=== PATIENT | male | born 1940 | race Caucasian/White ===

== ENCOUNTER 2016-10-21 19:45 | Emergency (ER) | payer MEDICARE, BC ==
[2016-10-21] MEDS ORDERED: OXYMETAZOLINE HCL 0.05% NASAL SPRAY 15 ML BOTTLE NASL ONE (20:12)
--- NOTE | 2016-10-21 20:16 | ER Document Report ---
ED ENT - General Chief Complaint: Nose Bleed Stated Complaint: NOSE BLEED Time seen by provider: 20:15 Mode of Arrival: Stretcher Information source: Patient TRAVEL OUTSIDE OF THE [place] IN LAST 30 DAYS: No - HPI Patient complains to provider of: Nose problem Onset: This evening Onset/Duration: Sudden Location of pain: Nose Associated symptoms: Nose bleed Similar symptoms previously: Yes - 4 days ago, resolved at home Recently seen / treated by doctor: Yes - seen by primary care provider today Notes: Patient is a 76-year-old male presents to the emergency room complaining of nosebleed that's been occurring for the past 4 hours, patient denies any injury or trauma, no chest pain or shortness of breath, states he was at the pharmacy picking up a prescription for blood pressure medication when the nosebleed started, he thought he could take care of her at home so he waited 4 hours to come into the emergency room to seek treatments, states he had a similar nosebleed just a few days ago which resolved at home, patient is on Aggrenox and aspirin daily - Related Data Allergies/Adverse Reactions: No Known Drug Allergies Allergy (Verified 05/29/11 12:43) Past Medical History - General Information source: Patient - Social History Smoking Status: Unknown if Ever Smoked Family History: Reviewed & Not Pertinent - Past Medical History Cardiac Medical History: Reports: Hx Hypertension Pulmonary Medical History: Denies: Hx Tuberculosis Renal/ Medical History: Denies: Hx Peritoneal Dialysis Past Surgical History: Denies: Hx Appendectomy, Hx Bowel Surgery, Hx Cholecystectomy, Hx Coronary Artery Bypass Graft, Hx Gastric Bypass Surgery, Hx Herniorrhaphy, Hx Pacemaker, Hx Tonsillectomy - Immunizations Hx Diphtheria, Pertussis, Tetanus Vaccination: Yes Review of Systems - Review of Systems Constitutional: No symptoms reported EENT: See HPI Cardiovascular: No symptoms reported Respiratory: No symptoms reported Gastrointestinal: No symptoms reported Genitourinary: No symptoms reported Male Genitourinary: No symptoms reported Musculoskeletal: No symptoms reported Skin: No symptoms reported Hematologic/Lymphatic: No symptoms reported Neurological/Psychological: No symptoms reported -: Yes All other systems reviewed and negative Physical Exam - Vital signs Vitals: Resp 21 H 10/21/16 19:59 - General General appearance: Alert In distress: Mild - HEENT Head: Normocephalic, Atraumatic Eyes: Normal Conjunctiva: Normal Extraocular movements intact: Yes Eyelashes: Normal Pupils: PERRL Nasal: Epistaxis - Respiratory Respiratory status: No respiratory distress Chest status: Nontender Breath sounds: Normal Chest palpation: Normal - Cardiovascular Rhythm: Regular Heart sounds: Normal auscultation Murmur: No - Abdominal Inspection: Normal Distension: Distended Bowel sounds: Normal Tenderness: Nontender Organomegaly: No organomegaly - Back Back: Normal - Extremities General upper extremity: Normal inspection General lower extremity: Normal inspection - Neurological Cognition: Normal Orientation: AAOx4 [place] Coma Scale Eye Opening: Spontaneous Baljinder Coma Scale Verbal: Oriented [place] Coma Scale Motor: Obeys Commands [place] Coma Scale Total: 15 - Psychological Associated symptoms: Normal affect, Normal mood - Skin Skin Temperature: Warm Skin Moisture: Dry Skin Color: Normal Course - Re-evaluation Re-evalutation: 10/22/16 04:16 Rhino Rocket was placed in the right naris, bleeding subsided, he did have mild bleeding from the left nare which was resolved after using Afrin, patient was given instructions for follow-up and advised to return if symptoms worsen, patient acknowledges understanding and agreement with this plan - Vital Signs Vital signs: Temp Pulse Resp BP Pulse Ox 26 H 168/99 H 95 10/21/16 22:01 10/21/16 22:01 10/21/16 22:01 - Laboratory Result Diagrams: 10/21/16 20:44 10/21/16 20:44 Laboratory results interpreted by me: 10/21/16 10/21/16 10/21/16 20:44 20:44 20:44 WBC 10.9 H RDW 14.4 H APTT 23.0 L Glucose 111 H Procedures - Nosebleed Procedure Right Time completed: 04:16 Location: Posterior Supplies used: Rhinorocket Discharge - Discharge Clinical Impression: Nosebleed Condition: Stable Disposition: HOME, SELF-CARE Instructions: Nosebleed Instructions ([facility]), Nasal Sprays and Drops ([facility]) Additional Instructions: Nasal balloon needs to stay in place for the next 2-3 days. Then you should follow-up with an research hydraulic engineer or return to the emergency room for removal. Follow up with your primary care provider in the next 1-2 days as well. Return to the emergency room immediately if symptoms worsen or any additional Referrals: JACQUELYN LOO MD [Primary Care Provider] - Follow up as needed JESICA JAVIER MD [[facility]] - Follow up as needed
[2016-10-21 21:01] LABS: ABSOLUTE BASOPHILS # (AUTO) 0.1 10^3/uL (0.0-0.2); ABSOLUTE EOSINOPHILS # (AUTO) 0.2 10^3/uL (0.0-0.6); ABSOLUTE LYMPHOCYTES (AUTO) 3.9 10^3/uL (0.5-4.7); ABSOLUTE MONOCYTES (AUTO) 0.7 10^3/uL (0.1-1.4); ABSOLUTE NEUT (AUTO) 6.1 10^3/uL (1.7-8.2); BASOPHILS % (AUTO) 0.5 % (0-2); EOSINOPHILS % (AUTO) 1.5 % (0-6); HEMATOCRIT 41.9 % (37.9-51.0); HEMOGLOBIN 14.5 g/dL (13.5-17.0); HGB HCT DIFFERENCE 1.6; LYMPHOCYTES % (AUTO) 35.6 % (13-45); MEAN CORPUSCULAR HEMOGLOBIN 31.7 pg (27.0-33.4); MEAN CORPUSCULAR HGB CONC 34.7 g/dL (32.0-36.0); MEAN CORPUSCULAR VOLUME 91 fl (80-97); MONOCYTES % (AUTO) 6.6 % (3-13); RED BLOOD COUNT 4.58 10^6/uL (4.35-5.55); RED CELL DISTRIBUTION WIDTH 14.4 % (11.5-14.0); SEGMENTED NEUTROPHILS % (AUTO) 55.8 % (42-78); WHITE BLOOD COUNT 10.9 10^3/uL (4.0-10.5)
[2016-10-21 21:02] LABS: PROTHROMBIN TIME 12.3 SEC (11.4-15.4)
[2016-10-21] MEDS ORDERED: CLONIDINE HCL 0.2 MG TABLET PO ONE (21:17)
[2016-10-21 21:21] LABS: ALANINE AMINOTRANSFERASE 22 U/L (21-72); ALBUMIN 4.3 g/dL (3.5-5.0); ALKALINE PHOSPHATASE 54 U/L (38-126); ANION GAP 10 (5-19); ASPARTATE AMINO TRANSFERASE 24 U/L (17-59); BILIRUBIN,DIRECT 0.2 mg/dL (0.0-0.4); BILIRUBIN,TOTAL 0.5 mg/dL (0.2-1.3); BLOOD UREA NITROGEN 13 mg/dL (7-20); CALCIUM 9.5 mg/dL (8.4-10.2); CARBON DIOXIDE 30 mmol/L (22-30); CHLORIDE 99 mmol/L (98-107); CREATININE RESULT 0.98 mg/dL (0.52-1.25); GLUCOSE 111 mg/dL (75-110); POTASSIUM 4.4 mmol/L (3.6-5.0); SODIUM 138.8 mmol/L (137-145); TOTAL PROTEIN 8.1 g/dL (6.3-8.2)
[2016-10-21 22:22] VITALS: BP 168/99
== END 2016-10-21 22:30 | disposition home or self-care (01) ==
LOC: ER 19:45
PROC: 2Y41X5Z Packing of Nasal Region using Packing Material (ICD-10-PCS; principal; 2016-10-21)
DX: R04.0 Epistaxis (principal); Z79.899 Other long term (current) drug therapy
CPT/HCPCS: 99283; 36415; 85025; 85610; 85730; 80053; 30905; A9270; J3490

== ENCOUNTER 2017-08-27 15:18 | Emergency (ER) | payer MEDICARE, BC ==
--- NOTE | 2017-08-27 15:46 | RADIOLOGY REPORT (SQ) ---
EXAM DESCRIPTION: CT HEAD WITHOUT COMPLETED DATE/TIME: 08/27/2017 3:27 pm REASON FOR STUDY: Weakness to right arm COMPARISON: CT brain 05/29/2011 TECHNIQUE: Axial images acquired through the brain without intravenous contrast. Images reviewed wi th bone, brain and subdural windows. Images stored on PACS. All CT scanners at this facility use dose modulation, iterative reconstruction, and/or weight based d osing when appropriate to reduce radiation dose to as low as reasonably achievable (ALARA). [facility]: Dose Right [facility]: CareDose [facility]: Dose Right [facility]: Teradose 4D [facility]: [employer] RADIATION DOSE: CT Rad equipment meets quality standard of care and radiation dose reduction techniq ues were employed. CTDIvol: 64.6 mGy. DLP: 1163 mGy-cm. mGy. LIMITATIONS: Motion artifact FINDINGS: Motion artifact throughout the study. On images without motion artifact, no acute large t erritory ischemic change, acute intracranial hemorrhage, mass effect, or midline shift. There is moderate to marked bifrontal and biparietal small vessel chronic white matter disease, moder ate pontine white matter disease. Opacified bilateral ethmoid air cells. Mucus or serous retention cyst floor left maxillary sinus. No CT evidence of skull fracture. IMPRESSION: Limited study due to motion artifact. Chronic small vessel disease in the hemispheric w thuy matter and mid sandra. No gross acute changes. EVIDENCE OF ACUTE STROKE: NO. COMMENT: Pertinent findings on the imaging study reported as a CRITICAL RESULT to DR Gutierrez at15:3 0 on 08/27/2017. Category of Critical Result: CT stroke alert Quality ID # [id number]: Final reports with documentation of one or more dose reduction techniques (e.g., Au tomated exposure control, adjustment of the mA and/or kV according to patient size, use of iterative reconstruction technique) TECHNICAL DOCUMENTATION: JOB ID: [id number] [employer]- All Rights Reserved
--- NOTE | 2017-08-27 15:47 | RADIOLOGY REPORT (SQ) ---
EXAM DESCRIPTION: CHEST SINGLE VIEW COMPLETED DATE/TIME: 08/27/2017 3:32 pm REASON FOR STUDY: Weakness to right arm COMPARISON: None. EXAM PARAMETERS: NUMBER OF VIEWS: One view. TECHNIQUE: Single frontal radiographic view of the chest acquired. RADIATION DOSE: NA LIMITATIONS: Large patient, AP portable technique FINDINGS: LUNGS AND PLEURA: No opacities, masses or pneumothorax. No pleural effusion. MEDIASTINUM AND HILAR STRUCTURES: No masses. Contour normal. HEART AND VASCULAR STRUCTURES: Mild cardiomegaly BONES: Old healed left posterior and right anterior rib fractures HARDWARE: None in the chest. OTHER: No other significant finding. IMPRESSION: No acute findings TECHNICAL DOCUMENTATION: JOB ID: [id number] [employer]- All Rights Reserved
[2017-08-27 15:56] LABS: ABSOLUTE EOSINOPHILS # (AUTO) 0.2 10^3/uL (0.0-0.6); ABSOLUTE LYMPHOCYTES (AUTO) 3.2 10^3/uL (0.5-4.7); ABSOLUTE MONOCYTES (AUTO) 0.9 10^3/uL (0.1-1.4); ABSOLUTE NEUT (AUTO) 5.8 10^3/uL (1.7-8.2); BASOPHILS % (AUTO) 0.4 % (0-2); EOSINOPHILS % (AUTO) 1.6 % (0-6); HEMATOCRIT 45.2 % (37.9-51.0); HEMOGLOBIN 15.8 g/dL (13.5-17.0); INTERNATIONAL RATION (INR) 0.91; LYMPHOCYTES % (AUTO) 31.8 % (13-45); MEAN CORPUSCULAR HEMOGLOBIN 31.1 pg (27.0-33.4); MEAN CORPUSCULAR HGB CONC 35.1 g/dL (32.0-36.0); MEAN CORPUSCULAR VOLUME 89 fl (80-97); MONOCYTES % (AUTO) 9.1 % (3-13); PLATELET COUNT 187 10^3/uL (150-450); PROTHROMBIN TIME 12.9 SEC (11.4-15.4); RED BLOOD COUNT 5.09 10^6/uL (4.35-5.55); RED CELL DISTRIBUTION WIDTH 14.9 % (11.5-14.0); SEGMENTED NEUTROPHILS % (AUTO) 57.1 % (42-78); TOTAL CELLS COUNTED % (AUTO) 100 %; WHITE BLOOD COUNT 10.1 10^3/uL (4.0-10.5)
[2017-08-27 15:57] LABS: PARTIAL THROMBOPLASTIN TIME 32.5 SEC (23.5-35.8)
[2017-08-27 16:10] LABS: ALANINE AMINOTRANSFERASE 27 U/L (21-72); ALBUMIN 4.1 g/dL (3.5-5.0); ALKALINE PHOSPHATASE 56 U/L (38-126); ANION GAP 12 (5-19); ASPARTATE AMINO TRANSFERASE 17 U/L (17-59); BILIRUBIN,DIRECT 0.2 mg/dL (0.0-0.4); BILIRUBIN,TOTAL 0.3 mg/dL (0.2-1.3); BLOOD UREA NITROGEN 17 mg/dL (7-20); CALCIUM 9.3 mg/dL (8.4-10.2); CARBON DIOXIDE 24 mmol/L (22-30); CHLORIDE 101 mmol/L (98-107); CREATINE KINASE 47 U/L (55-170); GLUCOSE 83 mg/dL (75-110); POTASSIUM 4.5 mmol/L (3.6-5.0); SODIUM 136.8 mmol/L (137-145); TOTAL PROTEIN 7.4 g/dL (6.3-8.2)
[2017-08-27 16:28] LABS: CREATINE KINASE MB 0.56 ng/mL (<4.55)
[2017-08-27 16:29] LABS: TROPONIN I < 0.012 ng/mL
--- NOTE | 2017-08-27 16:58 | ER Document Report ---
ED General - General Chief Complaint: S/S of Possible Stroke Stated Complaint: POSSIBLE STROKE Time Seen by Provider: 08/27/17 16:04 TRAVEL OUTSIDE OF THE [place] IN LAST 30 DAYS: No - HPI Patient complains to provider of: Right-sided arm weakness Notes: Patient coming in after eating lunch today states that he had. Approximate 1 hour we could not move his right arm. Patient now presents to the ER states that his arm is back to normal however came to the ER at the urging of apparently some family members. States that try to call his PCP and also on the local surgeons who urged the patient to come to the ER for further evaluation. Patient does have a history of stroke in the past. Patient was last evaluated for stroke in 2010 with carotid Dopplers and echo. Patient states has history of hyperlipidemia hypertension and does smoke 2 packs a day. Patient resting comfortably upon my evaluation - Related Data Allergies/Adverse Reactions: No Known Drug Allergies Allergy (Verified 05/29/11 12:43) Past Medical History - Social History Smoking Status: Unknown if Ever Smoked Family History: Reviewed & Not Pertinent - Past Medical History Cardiac Medical History: Reports: Hx Hypertension Pulmonary Medical History: Denies: Hx Tuberculosis Renal/ Medical History: Denies: Hx Peritoneal Dialysis Past Surgical History: Denies: Hx Appendectomy, Hx Bowel Surgery, Hx Cholecystectomy, Hx Coronary Artery Bypass Graft, Hx Gastric Bypass Surgery, Hx Herniorrhaphy, Hx Pacemaker, Hx Tonsillectomy - Immunizations Hx Diphtheria, Pertussis, Tetanus Vaccination: Yes Review of Systems - Review of Systems Constitutional: No symptoms reported EENT: No symptoms reported Cardiovascular: No symptoms reported Respiratory: No symptoms reported Gastrointestinal: No symptoms reported Genitourinary: No symptoms reported Male Genitourinary: No symptoms reported Musculoskeletal: Other - Transient right arm weakness Skin: No symptoms reported Hematologic/Lymphatic: No symptoms reported Neurological/Psychological: No symptoms reported Physical Exam - Vital signs Vitals: Pulse Resp BP Pulse Ox 84 23 H 134/86 H 94 08/27/17 15:30 08/27/17 15:30 08/27/17 15:30 08/27/17 15:30 Interpretation: Normal - General General appearance: Appears well, Alert - HEENT Head: Normocephalic, Atraumatic Eyes: Normal Pupils: PERRL - Respiratory Respiratory status: No respiratory distress Chest status: Nontender Breath sounds: Normal Chest palpation: Normal - Cardiovascular Rhythm: Regular Heart sounds: Normal auscultation Murmur: No - Abdominal Inspection: Normal Distension: No distension Bowel sounds: Normal Tenderness: Nontender Organomegaly: No organomegaly - Back Back: Normal, Nontender - Extremities General upper extremity: Normal inspection, Nontender, Normal color, Normal ROM , Normal temperature General lower extremity: Normal inspection, Nontender, Normal color, Normal ROM , Normal temperature, Normal weight bearing. No: Michael's sign - Neurological Neuro grossly intact: Yes Cognition: Normal Orientation: AAOx4 [place] Coma Scale Eye Opening: Spontaneous [place] Coma Scale Verbal: Oriented Baljinder Coma Scale Motor: Obeys Commands [place] Coma Scale Total: 15 Speech: Normal Cranial nerves: Normal Cerebellar coordination: Other - [place] on finger to nose on the right hand Motor strength normal: LUE, RUE, LLE, RLE Additional motor exam normals: Equal core man Sensory: Normal - Psychological Associated symptoms: Normal affect, Normal mood - Skin Skin Temperature: Warm Skin Moisture: Dry Skin Color: Normal Course - Re-evaluation Re-evalutation: 08/27/17 17:32 Discussed with the patient concerning for possible TIA that the patient had flaccid paralysis of his right arm for approximately 1 hour. Patient not a candidate for TPA Discussed with PCP agrees with admission at this time. Informed patient that discussed with PCP that we are going to admit the patient for further evaluation patient states that he does not want to stay here in the hospital. Patient states he would rather go home. I explained to the patient with family member at bedside multiple times that the reason for admission was for evaluation to hopefully prevent further strokes. I explain to patient that he stroke to lead to the patient's or disability requiring him to receive 24-hour care causing inability to walk talk Causing inability for the patient to feed himself take care of himself. Patient states understanding of these risks. Patient states that he would still like to leave the hospital I spent the patient that he will sign out AGAINST MEDICAL ADVICE. Family is at bedside family is obviously upset however this is the patient's decision is that he does have medical decision-making capability. ANO 3 with no signs of any altered mental status. 08/27/17 23:29 - Vital Signs Vital signs: Temp Pulse Resp BP Pulse Ox 84 19 138/80 H 93 08/27/17 15:30 08/27/17 17:00 08/27/17 16:03 08/27/17 17:00 - Laboratory Result Diagrams: 08/27/17 15:43 08/27/17 15:43 Laboratory results interpreted by me: 08/27/17 08/27/17 15:43 15:43 RDW 14.9 H Sodium 136.8 L Creatine Kinase 47 L Discharge - Discharge Clinical Impression: right upper extrimity weakness HTN (hypertension) Qualifiers: Hypertension type: unspecified Qualified Code(s): I10 - Essential (primary) hypertension TIA (transient ischemic attack) Qualifiers: Transient cerebral ischemia type: unspecified Qualified Code(s): G45.9 - Transient cerebral ischemic attack, unspecified Condition: Good Disposition: AGAINST MEDICAL ADVICE Admitting Provider: Abel Unit Admitted: [facility] Instructions: Stop Smoking ([facility]), Stroke ([facility]) Additional Instructions: Your symptoms are concerning for a TIA or transient ischemia attack. This is when a part of your brain loses blood flow causing signs and symptoms of a stroke however this causes transient reverses itself. TIAs are the precursor to having strokes. I have discussed with your family physician recommending admission to the hospital for further evaluation however at this time you have decided to leave AGAINST MEDICAL ADVICE. You stated a understanding that you have the risk of possibly having a stroke later on you understand that is may lead to if not disabled with inability to walk talk care for yourself feed yourself and/or function. I highly recommend calling Florentino Loo MD office tomorrow for further evaluation. Please take your medications as prescribed. It is in your best interest to stop smoking. You may return to the er at anytime Referrals: FLORENTINO LOO MD [Primary Care Provider] - Follow up as needed
[2017-08-27] MEDS ORDERED: NORMAL SALINE 1000 ML 1,000 ML IV PRN (17:02)
--- NOTE | 2017-08-27 17:13 | PDOC H&P ---
History of Present Illness Admission Date/PCP: JACQUELYN LOO, Patient complains of: Arm weakness History of Present Illness: MARLENE BONE SR is a 77 year old male Past Medical History Cardiac Medical History: Reports: Hyperlipidema, Hypertension Pulmonary Medical History: Reports: Chronic Obstructive Pulmonary Disease (COPD) Denies: Tuberculosis Neurological Medical History: Reports: Ischemic CVA Musculoskeltal Medical History: Reports: Arthritis Past Surgical History Past Surgical History: Reports: None Denies: Appendectomy, Cholecystectomy, Coronary Artery Bypass Graft, Gastric Bypass Surgery, Herniorrhaphy, Pacemaker, Tonsillectomy Social History Information Source: Patient Lives with: Family Smoking Status: Current Every Day Smoker Frequency of Alcohol Use: Social Hx Recreational Drug Use: No Family History Family History: Reviewed & Not Pertinent Parental Family History Reviewed: Yes Children Family History Reviewed: Yes Sibling(s) Family History Reviewed.: Yes Medication/Allergy Home Medications: Aspirin [Ecotrin 81 mg EC Tablet] 81 mg PO DAILY 05/29/11 Aspirin/Dipyridamole [Aggrenox 25 mg/200 mg Capsule SA] 1 cap.sr PO BID Diltiazem HCl [Dilt-Cd] 240 mg PO DAILY 05/29/11 Lisinopril 40 mg PO DAILY 05/29/11 Losartan-Hctz 100-25 mg Tab 100 mg PO DAILY 05/29/11 Pravastatin Sodium [Pravachol] 40 mg PO QHS 05/29/11 Allergies/Adverse Reactions: No Known Drug Allergies Allergy (Verified 05/29/11 12:43) Review of Systems All systems: as per [facility] Physical Exam General appearance: PRESENT: mild distress Head exam: PRESENT: atraumatic Eye exam: PRESENT: conjunctiva pink Neck exam: PRESENT: carotid bruit Respiratory exam: PRESENT: rhonchi Cardiovascular exam: PRESENT: RRR, +S1, +S2 GI/Abdominal exam: PRESENT: normal bowel sounds, soft Extremities exam: PRESENT: full ROM Musculoskeletal exam: PRESENT: ambulatory Neurological exam: PRESENT: awake Results Laboratory Results: 08/27/17 15:43 08/27/17 15:43 08/27/17 08/27/17 15:43 15:43 WBC 10.1 RBC 5.09 Hgb 15.8 Hct 45.2 MCV 89 MCH 31.1 MCHC 35.1 RDW 14.9 H Plt Count 187 Seg Neutrophils % 57.1 Lymphocytes % 31.8 Monocytes % 9.1 Eosinophils % 1.6 Basophils % 0.4 Absolute Neutrophils 5.8 Absolute Lymphocytes 3.2 Absolute Monocytes 0.9 Absolute Eosinophils 0.2 Absolute Basophils 0.0 Sodium 136.8 L Potassium 4.5 Chloride 101 Carbon Dioxide 24 Anion Gap 12 BUN 17 Creatinine 1.17 Est GFR ( Amer) > 60 Est GFR (Non-Af Amer) > 60 Glucose 83 Calcium 9.3 Total Bilirubin 0.3 AST 17 ALT 27 Alkaline Phosphatase 56 Total Protein 7.4 Albumin 4.1 08/27/17 08/27/17 15:43 15:43 Creatine Kinase 47 L CK-MB (CK-2) 0.56 Troponin I < 0.012 Impressions: Chest X-Ray 08/27/17 15:22 IMPRESSION: No acute findings Head CT 08/27/17 15:22 IMPRESSION: Limited study due to motion artifact. Chronic small vessel disease in the hemispheric white matter and mid sandra. No gross acute changes. EVIDENCE OF ACUTE STROKE: NO. Assessment & Plan - Diagnosis (1) COPD (chronic obstructive pulmonary disease) Is this a current diagnosis for this admission?: Yes Plan: We will continue with nebulizer treatments (2) Hyperlipidemia Is this a current diagnosis for this admission?: Yes Plan: Continue current medications (3) HTN (hypertension) Qualifiers: Hypertension type: unspecified Qualified Code(s): I10 - Essential (primary ) hypertension Is this a current diagnosis for this admission?: Yes Plan: Continue close blood pressure control (4) TIA (transient ischemic attack) Qualifiers: Transient cerebral ischemia type: unspecified Qualified Code(s): G45.9 - Transient cerebral ischemic attack, unspecified Is this a current diagnosis for this admission?: Yes Plan: We will continue with aspirin and meds
[2017-08-27 17:26] VITALS: BP 138/80
[2017-08-27] MEDS ORDERED: ASPIRIN/DIPYRIDAMOLE 25-200 MG 1 CAP.SR CPMP.12HR PO SCH (18:00)
--- NOTE | 2017-08-27 18:53 | EKG REPORT ---
SEVERITY:- ABNORMAL ECG - SINUS RHYTHM ABNRM R PROG, CONSIDER ASMI OR LEAD PLACEMENT : Confirmed by: Tk Oleary MD 27-Aug-2017 18:52:17
[2017-08-27] MEDS ORDERED: (PENDING PHARMACY ID) (Pravastatin Sodium [Pravachol] 40 MG) PO SCH (22:00)
[2017-08-27] MEDS ORDERED: ATORVASTATIN CALCIUM 10 MG TABLET PO SCH (22:00)
[2017-08-28] MEDS ORDERED: LOSARTAN HCTZ PO SCH (10:00)
[2017-08-28] MEDS ORDERED: ASPIRIN 81 MG TABLET, ENT COATED PO SCH (10:00)
[2017-08-28] MEDS ORDERED: ENOXAPARIN SODIUM INJ 40 MG/0.4 ML DISP.SYRIN SUBCUT SCH (10:00)
[2017-08-28] MEDS ORDERED: DILTIAZEM HCL 240 MG PO SCH (10:00)
[2017-08-28] MEDS ORDERED: DILTIAZEM HCL 240 MG CAPSULE.CR PO SCH (10:00)
== END 2017-08-27 17:47 | disposition left against medical advice (07) ==
LOC: ER 15:18
DX: G45.9 Transient cerebral ischemic attack, unspecified (principal); R53.1 Weakness; M79.601 Pain in right arm; E78.5 Hyperlipidemia, unspecified; I10 Essential (primary) hypertension; F17.200 Nicotine dependence, unspecified, uncomplicated
CPT/HCPCS: 36415; 70450; 71045; 80053; 82550; 82553; 84484; 85025; 85610; 85730; 93005; 93010; 99285

== ENCOUNTER → 2018-03-01 | Outpatient (CLI) | payer MEDICARE, BC ==
[2018-03-01 08:01] LABS: ABSOLUTE EOSINOPHILS # (AUTO) 0.1 10^3/uL (0.0-0.6); ABSOLUTE LYMPHOCYTES (AUTO) 2.6 10^3/uL (0.5-4.7); ABSOLUTE MONOCYTES (AUTO) 0.5 10^3/uL (0.1-1.4); ABSOLUTE NEUT (AUTO) 4.4 10^3/uL (1.7-8.2); BASOPHILS % (AUTO) 0.3 % (0-2); EOSINOPHILS % (AUTO) 1.6 % (0-6); HEMATOCRIT 46.4 % (37.9-51.0); LYMPHOCYTES % (AUTO) 33.4 % (13-45); MEAN CORPUSCULAR HEMOGLOBIN 30.5 pg (27.0-33.4); MEAN CORPUSCULAR HGB CONC 34.4 g/dL (32.0-36.0); MEAN CORPUSCULAR VOLUME 89 fl (80-97); MONOCYTES % (AUTO) 7.1 % (3-13); PLATELET COUNT 212 10^3/uL (150-450); RED BLOOD COUNT 5.23 10^6/uL (4.35-5.55); RED CELL DISTRIBUTION WIDTH 14.7 % (11.5-14.0); SEGMENTED NEUTROPHILS % (AUTO) 57.6 % (42-78); TOTAL CELLS COUNTED % (AUTO) 100 %; WHITE BLOOD COUNT 7.7 10^3/uL (4.0-10.5)
[2018-03-01 08:27] LABS: ALANINE AMINOTRANSFERASE 22 U/L (21-72); ALBUMIN 4.1 g/dL (3.5-5.0); ALKALINE PHOSPHATASE 57 U/L (38-126); ANION GAP 11 (5-19); ASPARTATE AMINO TRANSFERASE 19 U/L (17-59); BILIRUBIN,DIRECT 0.3 mg/dL (0.0-0.4); BILIRUBIN,TOTAL 0.6 mg/dL (0.2-1.3); BLOOD UREA NITROGEN 10 mg/dL (7-20); CALCIUM 9.4 mg/dL (8.4-10.2); CARBON DIOXIDE 27 mmol/L (22-30); CHLORIDE 102 mmol/L (98-107); CHOLESTEROL 136.16 mg/dL (0-200); GLUCOSE 105 mg/dL (75-110); POTASSIUM 4.9 mmol/L (3.6-5.0); SODIUM 140.2 mmol/L (137-145); TOTAL PROTEIN 8.2 g/dL (6.3-8.2); TRIGLYCERIDES 84 mg/dL (<150)
[2018-03-01 08:57] LABS: DIRECT LDL 61 mg/dL (<100)
== END ==
LOC: LAB 07:43
PROVIDERS: ATTEND Internal Medicine
DX: I10 Essential (primary) hypertension (principal); E78.5 Hyperlipidemia, unspecified; R53.83 Other fatigue; R35.1 Nocturia
CPT/HCPCS: 36415; 80053; 80061; 84153; 84443; 85025

== ENCOUNTER → 2019-09-06 | Outpatient (CLI) | payer MEDICARE, BC ==
[2019-09-06 12:45] LABS: ABSOLUTE LYMPHOCYTES (AUTO) 2.3 10^3/uL (0.5-4.7); ABSOLUTE MONOCYTES (AUTO) 0.8 10^3/uL (0.1-1.4); ABSOLUTE NEUT (AUTO) 8.4 10^3/uL (1.7-8.2); BASOPHILS % (AUTO) 0.2 % (0-2); EOSINOPHILS % (AUTO) 0.4 % (0-6); HEMATOCRIT 39.2 % (37.9-51.0); HEMOGLOBIN 13.4 g/dL (13.5-17.0); LYMPHOCYTES % (AUTO) 20.2 % (13-45); MEAN CORPUSCULAR HEMOGLOBIN 28.9 pg (27.0-33.4); MEAN CORPUSCULAR HGB CONC 34.3 g/dL (32.0-36.0); MEAN CORPUSCULAR VOLUME 84 fl (80-97); PLATELET COUNT 323 10^3/uL (150-450); RED BLOOD COUNT 4.64 10^6/uL (4.35-5.55); RED CELL DISTRIBUTION WIDTH 14.6 % (11.5-14.0); SEGMENTED NEUTROPHILS % (AUTO) 72.2 % (42-78); TOTAL CELLS COUNTED % (AUTO) 100 %; WHITE BLOOD COUNT 11.6 10^3/uL (4.0-10.5)
[2019-09-06 13:10] LABS: ALBUMIN 3.3 g/dL (3.5-5.0); ALKALINE PHOSPHATASE 200 U/L (38-126); ANION GAP 10 (5-19); ASPARTATE AMINO TRANSFERASE 25 U/L (17-59); BILIRUBIN,DIRECT 0.5 mg/dL (0.0-0.4); BILIRUBIN,TOTAL 0.7 mg/dL (0.2-1.3); BLOOD UREA NITROGEN 10 mg/dL (7-20); CALCIUM 8.7 mg/dL (8.4-10.2); CARBON DIOXIDE 24 mmol/L (22-30); CHLORIDE 98 mmol/L (98-107); CHOLESTEROL 114.49 mg/dL (0-200); GLUCOSE 86 mg/dL (75-110); POTASSIUM 4.4 mmol/L (3.6-5.0); TOTAL PROTEIN 7.8 g/dL (6.3-8.2); TRIGLYCERIDES 73 mg/dL (<150)
[2019-09-06 13:21] LABS: DIRECT LDL 67 mg/dL (<100)
== END ==
LOC: OD 11:55
PROVIDERS: ATTEND Internal Medicine
DX: K57.92 Diverticulitis of intestine, part unspecified, without perforation or abscess without bleeding (principal); I10 Essential (primary) hypertension; I63.9 Cerebral infarction, unspecified; E78.5 Hyperlipidemia, unspecified
CPT/HCPCS: 36415; 80053; 80061; 84443; 85025

== ENCOUNTER → 2019-09-26 | Outpatient (CLI) | payer MEDICARE, BC | LOC: OD 14:47 | PROVIDERS: ATTEND Internal Medicine | DX: K90.0 Celiac disease (principal); R19.7 Diarrhea, unspecified | CPT/HCPCS: 36415; 83520; 83986; 87205 ==

== ENCOUNTER 2020-01-21 19:31 | Inpatient (IN) | payer MEDICARE, BC ==
[2020-01-21 20:04] LABS: ABSOLUTE LYMPHOCYTES (AUTO) 1.7 10^3/uL (0.5-4.7); ABSOLUTE MONOCYTES (AUTO) 0.8 10^3/uL (0.1-1.4); ABSOLUTE NEUT (AUTO) 15.3 10^3/uL (1.7-8.2); BASOPHILS % (AUTO) 0.1 % (0-2); HEMATOCRIT 44.9 % (37.9-51.0); LYMPHOCYTES % (AUTO) 9.5 % (13-45); MEAN CORPUSCULAR HEMOGLOBIN 26.9 pg (27.0-33.4); MEAN CORPUSCULAR HGB CONC 33.4 g/dL (32.0-36.0); MEAN CORPUSCULAR VOLUME 81 fl (80-97); MONOCYTES % (AUTO) 4.7 % (3-13); PLATELET COUNT 247 10^3/uL (150-450); RED BLOOD COUNT 5.57 10^6/uL (4.35-5.55); RED CELL DISTRIBUTION WIDTH 17.1 % (11.5-14.0); SEGMENTED NEUTROPHILS % (AUTO) 85.7 % (42-78); TOTAL CELLS COUNTED % (AUTO) 100 %; WHITE BLOOD COUNT 17.9 10^3/uL (4.0-10.5)
--- NOTE | 2020-01-21 20:04 | RADIOLOGY REPORT (SQ) ---
EXAM DESCRIPTION: CT HEAD WITHOUT IMAGES COMPLETED DATE/TIME: 01/21/2020 6:42 pm REASON FOR STUDY: suspected stroke COMPARISON: 08/27/2017 TECHNIQUE: Axial images acquired through the brain without intravenous contrast. Images reviewed wi th bone, brain and subdural windows. Additional sagittal and coronal reconstructions were generated. Images stored on PACS. All CT scanners at this facility use dose modulation, iterative reconstruction, and/or weight based d osing when appropriate to reduce radiation dose to as low as reasonably achievable (ALARA). [facility]: Dose Right [facility]: CareDose [facility]: Dose Right [facility]: Teradose 4D [facility]: [employer] RADIATION DOSE: mGy. LIMITATIONS: None. FINDINGS: VENTRICLES: Normal size and contour. CEREBRUM: No masses. No hemorrhage. No midline shift. No evidence for acute infarction. Normal gra y-white matter differentiation. Moderate diffuse periventricular, deep, and subcortical white matter hypodense attenuation consistent with moderate chronic small vessel ischemic change. There is intra cranial atherosclerosis. CEREBELLUM: No masses. No hemorrhage. No alteration of density. No evidence for acute infarction. EXTRAAXIAL SPACES: No fluid collections. No masses. ORBITS AND GLOBE: No intra- or extraconal masses. Normal contour of globe without masses. CALVARIUM: No fracture. PARANASAL SINUSES: No fluid or mucosal thickening. SOFT TISSUES: No mass or hematoma. OTHER: No other significant finding. IMPRESSION: 1. No acute intracranial hemorrhage, mass, or evidence of acute territorial infarct. 2. Moderate chronic small vessel ischemic change is stable. Intracranial atherosclerosis. EVIDENCE OF ACUTE STROKE: NO. COMMENT: Quality ID # [id number]: Final reports with documentation of one or more dose reduction techniques (e.g., Automated exposure control, adjustment of the mA and/or kV according to patient size, use of iterative reconstruction technique) TECHNICAL DOCUMENTATION: JOB ID: [id number] [employer]- All Rights Reserved Reading location - IP/workstation name: [email or web address]
[2020-01-21 20:09] LABS: INTERNATIONAL RATION (INR) 1.05; PROTHROMBIN TIME 13.7 SEC (11.4-15.4)
[2020-01-21 20:10] LABS: PARTIAL THROMBOPLASTIN TIME 33.6 SEC (23.5-35.8)
[2020-01-21 20:15] LABS: ALBUMIN 3.4 g/dL (3.5-5.0); ALKALINE PHOSPHATASE 456 U/L (38-126); ANION GAP 10 (5-19); ASPARTATE AMINO TRANSFERASE 123 U/L (17-59); BILIRUBIN,DIRECT 0.7 mg/dL (0.0-0.4); BILIRUBIN,TOTAL 1.4 mg/dL (0.2-1.3); BLOOD UREA NITROGEN 27 mg/dL (7-20); CALCIUM 8.7 mg/dL (8.4-10.2); CARBON DIOXIDE 23 mmol/L (22-30); CHLORIDE 94 mmol/L (98-107); GLUCOSE 96 mg/dL (75-110); TOTAL PROTEIN 7.7 g/dL (6.3-8.2)
[2020-01-21 20:16] LABS: POTASSIUM 4.6 mmol/L (3.6-5.0)
[2020-01-21 21:25] LABS: APPEARANCE,URINE CLEAR; BILIRUBIN,URINE SMALL (NEGATIVE); COLOR,URINE AMBER; GLUCOSE, URINE NEGATIVE (NEGATIVE); KETONES,URINE NEGATIVE (NEGATIVE); LEUKOCYTE ESTERASE,URINE NEGATIVE (NEGATIVE); NITRITE,URINE NEGATIVE (NEGATIVE); PROTEIN,URINE 30 mg/dL (NEGATIVE); URINE SPECIFIC GRAVITY 1.024
[2020-01-21 21:39] LABS: URINE AMPHETAMINES SCREEN NEGATIVE; URINE BARBITURATES SCREEN NEGATIVE; URINE BENZODIAZEPINES SCREEN NEGATIVE; URINE COCAINE SCREEN NEGATIVE; URINE MARIJUANA (THC) SCREEN NEGATIVE; URINE METHADONE SCREEN NEGATIVE; URINE PHENCYCLIDINE SCREEN NEGATIVE
--- NOTE | 2020-01-21 22:05 | EKG REPORT ---
SEVERITY:- ABNORMAL ECG - SINUS TACHYCARDIA LAD, CONSIDER LAFB OR INFERIOR INFARCT ANTERIOR INFARCT, AGE INDETERMINATE : Confirmed by: Eliazar Cannon 21-Jan-2020 22:05:09
[2020-01-21] MEDS ORDERED: NORMAL SALINE 1000 ML 1,000 ML IV ONE (22:58)
[2020-01-21] MEDS ORDERED: ONDANSETRON HCL INJ/PF 4 MG/2 ML SDV IV ONE (22:59)
[2020-01-21] MEDS ORDERED: PIPERACILLIN/TAZOBACTAM 3.375 GM VIAL IV ONE (23:01)
--- NOTE | 2020-01-22 00:13 | RADIOLOGY REPORT (SQ) ---
EXAM: Ultrasound abdomen limited CLINICAL DATA: High white blood cell count, elevated LFTs and total bilirubin. TECHNICAL DATA: Limited sonographic imaging of the right upper quadrant was performed on 01/21/2020 at 11:29 PM. Comparison: None. FINDINGS: The liver is enlarged and heterogeneous in echogenicity. In the right hepatic lobe there is a 2.3 x 1.2 x 2.1 cm focal area of increased echogenicity. There are several additional smaller areas of increased echogenicity within the liver. These may represent incidental hemangiomas. There is no evidence of intrahepatic duct dilatation. Doppler imaging reveals patency of the portal vein and normal hepatopedal flow. The gallbladder is well distended and normal in appearance. There is no evidence of gallbladder wall thickening. The gallbladder wall measures approximately 2 mm in diameter. No sonographic Blackwell sign was detected by the technologist. The common bile duct measures 2 mm in diameter. There is no evidence of biliary ductal dilatation. The right kidney is normal in size, shape and echogenicity without hydronephrosis. The right kidney measures 10 cm in length. There are a couple of punctate foci of increased echogenicity within the right kidney which likely represent small renal calculi.. There is no evidence of free fluid in the abdomen. The pancreas is poorly visualized as is the aorta secondary to overlying bowel gas. IMPRESSION: 1. Hepatomegaly with heterogeneous echogenicity of the liver. There are several small focal areas of increased echogenicity within the liver which may represent incidental hepatic hemangiomas. 2. No evidence of acute gallbladder pathology. 3. Suspect nonobstructing right nephrolithiasis.
--- NOTE | 2020-01-22 00:41 | RADIOLOGY REPORT (SQ) ---
EXAM DESCRIPTION: XR CHEST 1 VIEW COMPLETED DATE/TME: 01/22/2020 00:00 CLINICAL HISTORY: 79 years, Male, SUSPECTED STROKE COMPARISON: 08/27/2017 chest NUMBER OF VIEWS: 1 TECHNIQUE: Portable chest LIMITATIONS: None. FINDINGS: Cardiomegaly. Atheromatous change of the thoracic aorta. Osteopenia. Lungs are clear. No pneumothorax IMPRESSION: No acute cardiopulmonary process copyright 2010 [employer]- All Rights Reserved
[2020-01-22 01:01] LABS: APPEARANCE,URINE CLEAR; BILIRUBIN,URINE SMALL (NEGATIVE); COLOR,URINE AMBER; GLUCOSE, URINE NEGATIVE (NEGATIVE); KETONES,URINE NEGATIVE (NEGATIVE); LEUKOCYTE ESTERASE,URINE NEGATIVE (NEGATIVE); NITRITE,URINE NEGATIVE (NEGATIVE); PROTEIN,URINE 30 mg/dL (NEGATIVE); URINE SPECIFIC GRAVITY 1.026
[2020-01-22] MEDS ORDERED: NORMAL SALINE 1000 ML 1,000 ML IV ONE (02:35)
--- NOTE | 2020-01-22 03:40 | ER Document Report ---
Entered by DAISY MÉNDEZ SCRIBE 01/21/20 2314 Acting as scribe for:JESICA MAE IV, MD ED General - General Chief Complaint: S/S of Possible Stroke Stated Complaint: POSSIBLE STROKE Time Seen by Provider: 01/21/20 22:31 Primary Care Provider: JACQUELYN LOO MD [Primary Care Provider] - Follow up as needed Mode of Arrival: Medic Information source: Emergency Med Personnel Notes: This 79 year old male patient brought in by EMS presents to the ED today with complaints of altered mental status. HPI is relayed by ED nurse due to the patients's medical condition. Patient's last known normal was yesterday afternoon around 1400. EMS found the patient slumped over and drooling upon their arrival. EMS was called out earlier for the same thing, but the patient refused transport at that time; they state that the patient has declined since that initial visit. Patient has a history of HTN and HLD. He was started on Keflex x4 days ago, reason unknown. TRAVEL OUTSIDE OF THE [place] IN LAST 30 DAYS: No - Related Data Allergies/Adverse Reactions: No Known Drug Allergies Allergy (Verified 05/29/11 12:43) Past Medical History - General Information source: Emergency Med Personnel, [facility] Records - Social History Smoking Status: Current Every Day Smoker Cigarette use (# per day): Yes Chew tobacco use (# tins/day): No Smoking Education Provided: No Family History: Reviewed & Not Pertinent Patient has suicidal ideation: No Patient has homicidal ideation: No - Past Medical History Cardiac Medical History: Reports: Hx Hypercholesterolemia, Hx Hypertension Pulmonary Medical History: Reports: Hx COPD Musculoskeletal Medical History: Reports Hx Arthritis - Immunizations Hx Diphtheria, Pertussis, Tetanus Vaccination: Yes Review of Systems - Review of Systems -: Yes ROS unobtainable due to patient's medical condition Physical Exam - Vital signs Vitals: Pulse Resp BP Pulse Ox 112 H 27 H 126/93 H 94 01/21/20 19:31 01/21/20 19:31 01/21/20 19:31 01/21/20 19:31 - General General appearance: Other - Somnolent, poor historian In distress: None - HEENT Head: Normocephalic, Atraumatic Eyes: Normal Pupils: PERRL - Respiratory Respiratory status: No respiratory distress Chest status: Nontender Breath sounds: Normal Chest palpation: Normal - Cardiovascular Rhythm: Regular Heart sounds: Normal auscultation Murmur: No Friction rub: No Gallop: None auscultated - Abdominal Inspection: Normal Distension: No distension Bowel sounds: Normal Tenderness: Nontender - Abdomen soft Organomegaly: No organomegaly - Back Back: Normal, Nontender - Extremities General upper extremity: Normal inspection General lower extremity: Normal inspection - Neurological Neuro grossly intact: Yes - No focal neurological findings - Psychological Associated symptoms: Confused - Skin Skin Temperature: Warm Skin Moisture: Dry Skin Color: Normal Course - Re-evaluation Re-evalutation: 01/22/20 03:35 Patient is currently in no acute distress. He is resting in bed. Heart rate is 82, O2 sats 95%, blood pressure 105/68, respiratory rate is 21. - Vital Signs Vital signs: Temp Pulse Resp BP Pulse Ox 98.2 F 112 H 20 105/68 90 L 01/22/20 03:10 01/21/20 19:31 01/22/20 03:01 01/22/20 03:00 01/22/20 03:01 - Laboratory Result Diagrams: 01/21/20 19:50 01/21/20 19:50 Laboratory results interpreted by me: 01/21/20 01/21/20 01/21/20 19:50 19:50 21:00 WBC 17.9 H RBC 5.57 H MCH 26.9 L RDW 17.1 H Lymph % (Auto) 9.5 L Absolute Neuts (auto) 15.3 H Seg Neutrophils % 85.7 H Sodium 126.9 L Chloride 94 L BUN 27 H Total Bilirubin 1.4 H Direct Bilirubin 0.7 H AST 123 H ALT 114 H Alkaline Phosphatase 456 H Ammonia Albumin 3.4 L Urine Protein 30 H Urine Blood SMALL H Urine Bilirubin SMALL H Urine Urobilinogen 4.0 H 01/21/20 01/22/20 23:12 00:43 WBC RBC MCH RDW Lymph % (Auto) Absolute Neuts (auto) Seg Neutrophils % Sodium Chloride BUN Total Bilirubin Direct Bilirubin AST ALT Alkaline Phosphatase Ammonia < 8.7 L Albumin Urine Protein 30 H Urine Blood SMALL H Urine Bilirubin SMALL H Urine Urobilinogen 4.0 H - Diagnostic Test Radiology reviewed: Reports reviewed - EKG Interpretation by Me Additional EKG results interpreted by me: 01/22/20 03:36 EKG obtained on 01/21/2020 at 1958 hrs. was interpreted by this MD. Findings: Sinus tachycardia, rate 113, left axis deviation is present, P waves preceding QRS complexes, QRS complexes appear narrow, there are no obvious patterns of ST segment elevation or depression present to suggest acute myocardial ischemia or infarction. Impression sinus tachycardia with left axis deviation and nonspecific ST segments. - Consults dr. burns Time consulted: 03:38 - dr burns agreed to admit pt Reason for consultation: 01/22/20 03:38 ams, confusion Consulted provider: will see as inpatient Discharge - Discharge Clinical Impression: Confusion AMS (altered mental status) Qualifiers: Altered mental status type: unspecified Qualified Code(s): R41.82 - Altered mental status, unspecified Condition: Stable Disposition: ADMITTED INPATIENT Admitting Provider: Damian (Hospitalist) Unit Admitted: Medical Floor Referrals: JACQUELYN LOO MD [Primary Care Provider] - Follow up as needed I personally performed the services described in the documentation, reviewed and edited the documentation which was dictated to the scribe in my presence, and it accurately records my words and actions.
[2020-01-22] MEDS ORDERED: MAGNESIUM HYDROXIDE SUSP 30 ML UDCUP PO PRN (04:02)
[2020-01-22] MEDS ORDERED: MAG HYDROX/AL HYDROX/SIMETH SUSP 30 ML UDCUP PO PRN (04:02)
[2020-01-22] MEDS ORDERED: ONDANSETRON HCL INJ/PF 4 MG/2 ML SDV IV PRN (04:02)
[2020-01-22] MEDS ORDERED: LEVALBUTEROL HCL NEB 0.63 MG/3 ML AMPUL NEB PRN (04:02)
[2020-01-22] MEDS ORDERED: GUAIFENESIN SYRP 200 MG/10 ML UDC PO PRN (04:08)
[2020-01-22] MEDS ORDERED: MELATONIN 5 MG TABLET PO PRN (04:08)
[2020-01-22] MEDS ORDERED: ACETAMINOPHEN 325 MG TABLET PO PRN (04:08)
[2020-01-22] MEDS ORDERED: NICOTINE 21 MG/24 HR PATCH.TD24 TD PRN (04:08)
[2020-01-22] MEDS ORDERED: LORAZEPAM INJ 2 MG/1 ML VIAL IV PRN (04:08)
--- NOTE | 2020-01-22 06:15 | PDOC H&P ---
History of Present Illness Admission Date/PCP: 01/22/2020 03:34 JACQUELYN LOO MD Patient complains of: Altered mental status History of Present Illness: MARLENE DENNISON SR is a 79 year old male who presented to the emergency room via EMS for altered mental status. The patient is mentally confused unable to provide meaningful historical information to his medical record at this time. EMS was called to the patient's residence because he was confused and lethargic. His last known normal state was on the afternoon of 01/20/2020. EMS had made a prior trip to the patient's house for the same symptoms on the morning of 01/21/2020 however at that point in time he was more arousable and refused to be transported. Since the first EMS trip to the patient's home they noted that he was more confused and more somnolent when they arrived to bring him to the hospital on the evening of 01/21/2020. In the ER the patient was arousable but mumbled incoherently when stimulated. CT scan of the head and chest x-ray were negative. Patient did not have a fever but was noted to have an elevated white blood count of 17,900, although he was also noted to have finished a course of prednisone 40 mg daily x4 days prescribed by Dr. Loo on 01/20/2020, he is currently taking Keflex also prescribed by Dr. Loo. He was additionally noted to have a sodium of 126.9. BUN was 27 and creatinine was 1.06. Patient was initially mildly tachycardic in the 100-110 range but this resolved after receiving IV fluids. Past Medical History Past Medical History: Due to the patient's altered mental status with confusion all information for past medical history, past surgical history, social history and family history obtained from the best available reliable source. Cardiac Medical History: Reports: Hyperlipidema, Hypertension Pulmonary Medical History: Reports: Chronic Obstructive Pulmonary Disease (COPD) Denies: Tuberculosis EENT Medical History: Denies: Cataracts, Ears - Hearing aids Neurological Medical History: Reports: Ischemic CVA, Other - TIA Denies: Hemorrhagic CVA, Seizures Endocrine Medical History: Denies: Diabetes Mellitus Type 1, Diabetes Mellitus Type 2, Hyperthyroidism, Hypothyroidism Renal/ Medical History: Denies: Chronic Kidney Disease, Nephrolithiasis Malignancy Medical History: Reports: None GI Medical History: Denies: Cirrhosis, Hepatitis Musculoskeltal Medical History: Reports: Arthritis Denies: Gout Skin Medical History: Denies: Eczema, Psoriasis Psychiatric Medical History: Reports: Alcohol Dependency, Tobacco Dependency Denies: Substance Abuse Traumatic Medical History: Reports: None Hematology: Denies: Anemia, Bleeding Tendencies Infectious Medical History: Reports: None Past Surgical History Past Surgical History: Reports: None Social History Information Source: [facility], [facility] Records Lives with: Alone Smoking Status: Current Every Day Smoker Cigarettes Packs Per Day: 2 Electronic Cigarette use?: No Frequency of Alcohol Use: Heavy - 3-4 drinks with hard liquor daily Hx Recreational Drug Use: No Drugs: None Hx Prescription Drug Abuse: No - Advance Directive Resuscitation Status: Full Code Surrogate healthcare decision maker:: Marlene Dennison Jr. Family History Family History: Hypertension Parental Family History Reviewed: Yes Children Family History Reviewed: No Sibling(s) Family History Reviewed.: Yes Medication/Allergy Home Medications: Diltiazem HCl [Diltiazem ER] 240 mg PO DAILY 08/27/17 Lisinopril [Prinivil 40 mg Tablet] 40 mg PO DAILY 08/27/17 Pravastatin Sodium [Pravachol] 40 mg PO QHS 08/27/17 Allergies/Adverse Reactions: No Known Drug Allergies Allergy (Verified 05/29/11 12:43) Review of Systems ROS unobtainable: Due to mental status - Altered mental status with confusion Physical Exam Vital Signs: Temp Pulse Resp BP Pulse Ox 98.2 F 112 H 20 105/68 90 L 01/22/20 03:10 01/21/20 19:31 01/22/20 03:01 01/22/20 03:00 01/22/20 03:01 Intake & Output 01/20/20 01/21/20 01/22/20 23:59 23:59 23:59 Intake Total 1000 Balance 1000 Weight 91.5 kg General appearance: PRESENT: no acute distress, other - Easily arousable but confused Head exam: PRESENT: atraumatic, normocephalic Eye exam: PRESENT: conjunctiva pink. ABSENT: conjunctival injection, scleral icterus Ear exam: PRESENT: normal external ear exam. ABSENT: bleeding, drainage Mouth exam: PRESENT: dry mucosa, neck supple Neck exam: ABSENT: thyromegaly, tracheal deviation Respiratory exam: PRESENT: decreased breath sounds - Minimally decreased breath sounds throughout all wells, prolonged expiratory phas - Minimally prolonged expiratory phase noted in all wells, symmetrical, unlabored Cardiovascular exam: PRESENT: RRR. ABSENT: clicks, gallop, rubs Pulses: PRESENT: normal radial pulses, normal dorsalis pedis pul Vascular exam: PRESENT: normal capillary refill. ABSENT: pallor GI/Abdominal exam: PRESENT: normal bowel sounds, soft Rectal exam: PRESENT: deferred Extremities exam: ABSENT: joint swelling, pedal edema Musculoskeletal exam: ABSENT: deformity, dislocation Neurological exam: PRESENT: altered - confused, other - Lethargic/somnolent, unintelligible muttering when awakened Psychiatric exam: PRESENT: other - Lethargic and confused when aroused Skin exam: PRESENT: dry, intact, warm. ABSENT: jaundice, rash, urticaria Results Laboratory Results: 01/21/20 19:50 01/21/20 19:50 01/21/20 01/21/20 01/21/20 19:50 19:50 21:00 WBC 17.9 H RBC 5.57 H Hgb 15.0 Hct 44.9 MCV 81 MCH 26.9 L MCHC 33.4 RDW 17.1 H Plt Count 247 Seg Neutrophils % 85.7 H Sodium 126.9 L Potassium 4.6 Chloride 94 L Carbon Dioxide 23 Anion Gap 10 BUN 27 H Creatinine 1.06 Est GFR ( Amer) > 60 Glucose 96 Calcium 8.7 Magnesium 2.2 Total Bilirubin 1.4 H AST 123 H Alkaline Phosphatase 456 H Ammonia Total Protein 7.7 Albumin 3.4 L Urine Color AVNI Urine Appearance CLEAR Urine pH 5.0 Ur Specific [place] 1.024 Urine Protein 30 H Urine Glucose (UA) NEGATIVE Urine Ketones NEGATIVE Urine Blood SMALL H Urine Nitrite NEGATIVE Ur Leukocyte Esterase NEGATIVE Urine WBC (Auto) 2 Urine RBC (Auto) 2 01/21/20 01/22/20 23:12 00:43 WBC RBC Hgb Hct MCV MCH MCHC RDW Plt Count Seg Neutrophils % Sodium Potassium Chloride Carbon Dioxide Anion Gap BUN Creatinine Est GFR ( Amer) Glucose Calcium Magnesium Total Bilirubin AST Alkaline Phosphatase Ammonia < 8.7 L Total Protein Albumin Urine Color AVNI Urine Appearance CLEAR Urine pH 5.0 Ur Specific [place] 1.026 Urine Protein 30 H Urine Glucose (UA) NEGATIVE Urine Ketones NEGATIVE Urine Blood SMALL H Urine Nitrite NEGATIVE Ur Leukocyte Esterase NEGATIVE Urine WBC (Auto) 1 Urine RBC (Auto) 4 01/21/20 19:50 Troponin I 0.033 Impressions: Head CT 01/21/20 19:39 IMPRESSION: 1. No acute intracranial hemorrhage, mass, or evidence of acute territorial infarct. 2. Moderate chronic small vessel ischemic change is stable. Intracranial atherosclerosis. EVIDENCE OF ACUTE STROKE: NO. Abdomen Ultrasound 01/21/20 22:57 IMPRESSION: 1. Hepatomegaly with heterogeneous echogenicity of the liver. There are several small focal areas of increased echogenicity within the liver which may represent incidental hepatic hemangiomas. 2. No evidence of acute gallbladder pathology. 3. Suspect nonobstructing right nephrolithiasis. Chest X-Ray 01/22/20 00:00 IMPRESSION: No acute cardiopulmonary process copyright 2011 [employer]- All Rights Reserved Assessment and Plan - Diagnosis (1) Altered mental status Qualifiers: Altered mental status type: delirium Qualified Code(s): R41.0 - Disorientation, unspecified Is this a current diagnosis for this admission?: Yes (2) Hyponatremia Is this a current diagnosis for this admission?: Yes (3) Tachycardia Is this a current diagnosis for this admission?: Yes (4) Leukocytosis Qualifiers: Leukocytosis type: unspecified Qualified Code(s): D72.829 - Elevated white blood cell count, unspecified Is this a current diagnosis for this admission?: Yes (5) Hypertension Qualifiers: Hypertension type: essential hypertension Qualified Code(s): I10 - Essential (primary) hypertension Is this a current diagnosis for this admission?: Yes (6) COPD (chronic obstructive pulmonary disease) Qualifiers: COPD type: unspecified COPD Qualified Code(s): J44.9 - Chronic obstructive pulmonary disease, unspecified Is this a current diagnosis for this admission?: Yes (7) Hyperlipidemia Qualifiers: Hyperlipidemia type: unspecified Qualified Code(s): E78.5 - Hyperlipidemia, unspecified Is this a current diagnosis for this admission?: Yes - Plan Summary Summary: Patient will be admitted to the medical floor he will receive routine supportive and symptomatic cares. He will be treated with IV fluids using D5LR at 167 mL/h initially. CBCs, metabolic profiles, magnesium levels and additional laboratory or radiographic evaluations will be obtained as appropriate. Ativan 1 mg IV every 4 hours will be administered as needed for anxiety or agitation. Patient will be on a cardiac diet. - Time Time Spent with patient: Less than 15 minutes Medications reviewed and adjusted accordingly: Yes Anticipated discharge: Home - Inpatient Certification Based on my medical assessment, after consideration of the patient's comorbidities, presenting symptoms, or acuity I expect that the services needed warrant INPATIENT care.: Yes I certify that my determination is in accordance with my understanding of Medicare's requirements for reasonable and necessary INPATIENT services [42 CFR 412.3e].: Yes Medical Necessity: Failure to Improve With Outpatient Therapy, Significant Comorbidiites Make Outpatient Treatment Too Risky, Need Close Monitoring Due to Risk of Patient Decompensation, Need For IV Fluids, Need for Neurological Checks, Risk of Complication if Not Cared For in Hospital
[2020-01-22] MEDS: DEXTROSE 5%-LACTATED RINGERS 1,000 ML IV PRN ×3 (06:22→20:32)
[2020-01-22] MEDS: HEPARIN SOD (PORCINE) 5,000 UNIT/ML 1 ML VIAL SUBCUT SCH ×3 (06:22→21:25)
[2020-01-22] MEDS: DOCUSATE SODIUM 100 MG CAPSULE PO SCH ×2 (09:46→17:40)
[2020-01-22] MEDS: FAMOTIDINE 20 MG TABLET PO SCH ×2 (09:46→21:25)
[2020-01-22] MEDS: LISINOPRIL 10 MG TABLET PO SCH (12:20)
[2020-01-22] MEDS: DILTIAZEM HCL 240 MG CAPSULE.CR PO SCH (12:21)
[2020-01-22] MEDS: TRIAMCINOLONE ACETONIDE 0.1% CREAM 15 GM TOP SCH (17:40)
--- NOTE | 2020-01-22 18:42 | Progress Note ---
Provider Note Provider Note: Patient has been seen, examined, and evaluated by me today. Patient was admitted late this morning by overnight physician. He was admitted for altered mental status, hyponatremia, elevated LFTs. CT head chest x-ray did not show acute abnormalities. He did have elevated WBC which is not explained by labs/imaging. Ammonia level was normal and UA was unremarkable. Patient is fully alert and he is oriented to self/location only. It is suspected that the patient may have taken his Thorazine dose more than once and become confused. His son helps him manage his medications, however he has been noted that the patient possibly is taking his medications separately from the doses his son gives him. These will need to be secured safely in the patient's home in the future. Patient would benefit greatly from home health nursing for medication management.
[2020-01-22] MEDS: ATORVASTATIN CALCIUM 10 MG TABLET PO SCH (21:25)
[2020-01-23] MEDS: DEXTROSE 5%-LACTATED RINGERS 1,000 ML IV PRN ×3 (02:20→18:29)
[2020-01-23] MEDS: HEPARIN SOD (PORCINE) 5,000 UNIT/ML 1 ML VIAL SUBCUT SCH ×3 (05:47→21:29)
[2020-01-23 06:44] LABS: HEMATOCRIT 32.9 % (37.9-51.0); MEAN CORPUSCULAR HEMOGLOBIN 27.1 pg (27.0-33.4); MEAN CORPUSCULAR HGB CONC 33.4 g/dL (32.0-36.0); MEAN CORPUSCULAR VOLUME 81 fl (80-97); PLATELET COUNT 146 10^3/uL (150-450); RED BLOOD COUNT 4.05 10^6/uL (4.35-5.55); RED CELL DISTRIBUTION WIDTH 16.8 % (11.5-14.0); WHITE BLOOD COUNT 7.7 10^3/uL (4.0-10.5)
[2020-01-23 07:04] LABS: ALBUMIN 2.2 g/dL (3.5-5.0); ALKALINE PHOSPHATASE 299 U/L (38-126); ANION GAP 6 (5-19); ASPARTATE AMINO TRANSFERASE 64 U/L (17-59); BILIRUBIN,DIRECT 0.2 mg/dL (0.0-0.4); BILIRUBIN,TOTAL 0.6 mg/dL (0.2-1.3); BLOOD UREA NITROGEN 15 mg/dL (7-20); CALCIUM 7.7 mg/dL (8.4-10.2); CARBON DIOXIDE 24 mmol/L (22-30); CHLORIDE 97 mmol/L (98-107); CHOLESTEROL 129.98 mg/dL (0-200); GLUCOSE 96 mg/dL (75-110); POTASSIUM 3.9 mmol/L (3.6-5.0); TOTAL PROTEIN 5.3 g/dL (6.3-8.2); TRIGLYCERIDES 116 mg/dL (<150)
[2020-01-23 07:15] LABS: DIRECT LDL 54 mg/dL (<100)
[2020-01-23 07:20] LABS: FREE T3 2.06 pg/mL (2.77-5.27)
[2020-01-23 07:34] LABS: THYROID STIMULATING HORMONE 2.53 uIU/mL (0.47-4.68)
[2020-01-23] MEDS ORDERED: (PENDING PHARMACY ID) (Pravastatin Sodium [Pravachol] 40 MG) PO SCH (08:00)
[2020-01-23] MEDS ORDERED: LISINOPRIL 10 MG TABLET PO SCH (10:00)
[2020-01-23] MEDS ORDERED: DILTIAZEM HCL 240 MG CAPSULE.CR PO SCH (10:00)
[2020-01-23] MEDS: DILTIAZEM HCL 240 MG CAPSULE.CR PO SCH (10:45)
[2020-01-23] MEDS: LISINOPRIL 10 MG TABLET PO SCH (10:45)
[2020-01-23] MEDS: DOCUSATE SODIUM 100 MG CAPSULE PO SCH ×2 (10:46→18:28)
[2020-01-23] MEDS: TRIAMCINOLONE ACETONIDE 0.1% CREAM 15 GM TOP SCH ×2 (10:46→18:29)
[2020-01-23] MEDS: FLUTICASONE/UMECLIDIN/VILANTER 100-62.5-25 MCG/DOSE IH SCH (10:46)
[2020-01-23] MEDS: FAMOTIDINE 20 MG TABLET PO SCH ×2 (10:46→21:34)
--- NOTE | 2020-01-23 10:53 | CDI QUERY ---
CDI Query CDI Review: Dear Provider, Please document in progress notes and D/C summary if you agree with the clinical data: ACUTE TOXIC ENCEPHALOPATHY, cause unknown? ACUTE TOXIC ENCENCEPHALOPATHY, likely due to medications taken incorrectly? ACUTE METABOLIC ENCEPHALOPATHY? OTHER? Clinical findings: AMS HYPONATREMIA ELECTROLYTE IMBALANCE Thanks, Ghazala Ambriz [phone]
--- NOTE | 2020-01-23 14:41 | PDOC PROGRESS REPORT ---
Subjective Progress Note for:: 01/23/20 Subjective:: Patient seems to have more energy today and is breathing quite well. He states he feels better overall. His sodium is still low at 127 and my goal is approximately 130 to be safely discharged. Per the son whom I had an extensive conversation with today, the patient has had a lot of salt craving at home and is actually eating a large amount of salt on his food. This is strange given he is admitted here with hyponatremia. I have ordered urine and serum osmolality as well as urine electrolytes. If his sodium reaches 130 or above tomorrow, he can be discharged home with home health for nursing medication teaching and possibly physical therapy. Son is in full agreement with this plan and the patient is as well. I recommend that the patient does not take Thorazine again in the future and that he instead follow-up with an ENT physician to look at his vocal cords. It is possible vocal cords and upper airway is being irritated by continued cigarette smoking which I strongly advised patient to stop doing. Reason For Visit: ALTERED MENTAL STATUS Physical Exam Vital Signs: Temp Pulse Resp BP Pulse Ox 97.7 F 78 16 131/70 H 96 01/23/20 12:07 01/23/20 13:18 01/23/20 13:18 01/23/20 12:07 01/23/20 13:18 Intake & Output 01/22/20 01/23/20 01/24/20 06:59 06:59 06:59 Intake Total 1999 4409 1236 Output Total 300 Balance 1999 4409 936 Weight 90.1 kg 90.1 kg General appearance: PRESENT: no acute distress, well-developed, well-nourished Head exam: PRESENT: atraumatic, normocephalic Eye exam: PRESENT: conjunctiva pink Mouth exam: PRESENT: moist Respiratory exam: PRESENT: clear to auscultation lorena. ABSENT: rales, rhonchi, wheezes Cardiovascular exam: PRESENT: RRR. ABSENT: diastolic murmur, rubs, systolic murmur GI/Abdominal exam: PRESENT: normal bowel sounds, soft. ABSENT: distended, guarding, mass, organolmegaly, rebound, tenderness Neurological exam: PRESENT: alert, awake, oriented to person, oriented to place, oriented to situation Psychiatric exam: PRESENT: appropriate affect Skin exam: PRESENT: dry, intact, rash - Dry skin on bilateral legs, warm Results Laboratory Results: 01/23/20 06:05 01/23/20 06:05 01/22/20 01/23/20 01/23/20 14:35 06:05 06:05 WBC 7.7 RBC 4.05 L Hgb 11.0 L D Hct 32.9 L MCV 81 MCH 27.1 MCHC 33.4 RDW 16.8 H Plt Count 146 L Sodium 127.0 L Potassium 3.9 Chloride 97 L Carbon Dioxide 24 Anion Gap 6 BUN 15 Creatinine 0.71 Est GFR ( Amer) > 60 Glucose 96 Lactic Acid 2.1 Calcium 7.7 L Magnesium 1.9 Total Bilirubin 0.6 AST 64 H Alkaline Phosphatase 299 H Total Protein 5.3 L Albumin 2.2 L Triglycerides 116 Cholesterol 129.98 LDL Cholesterol Direct 54 VLDL Cholesterol 23.0 HDL Cholesterol 48 TSH Free T3 pg/mL 01/23/20 06:05 WBC RBC Hgb Hct MCV MCH MCHC RDW Plt Count Sodium Potassium Chloride Carbon Dioxide Anion Gap BUN Creatinine Est GFR ( Amer) Glucose Lactic Acid Calcium Magnesium Total Bilirubin AST Alkaline Phosphatase Total Protein Albumin Triglycerides Cholesterol LDL Cholesterol Direct VLDL Cholesterol HDL Cholesterol TSH 2.53 Free T3 pg/mL 2.06 L 01/22/20 00:02 Blood Blood Culture (PCR) - Final Staphylococcus Species Streptococcus Species 01/21/20 23:12 Blood Blood Culture (PCR) - Final Staphylococcus Species Streptococcus Species 01/21/20 19:50 Troponin I 0.033 Impressions: Head CT 01/21/20 19:39 IMPRESSION: 1. No acute intracranial hemorrhage, mass, or evidence of acute territorial infarct. 2. Moderate chronic small vessel ischemic change is stable. Intracranial atherosclerosis. EVIDENCE OF ACUTE STROKE: NO. Abdomen Ultrasound 01/21/20 22:57 IMPRESSION: 1. Hepatomegaly with heterogeneous echogenicity of the liver. There are several small focal areas of increased echogenicity within the liver which may represent incidental hepatic hemangiomas. 2. No evidence of acute gallbladder pathology. 3. Suspect nonobstructing right nephrolithiasis. Chest X-Ray 01/22/20 00:00 IMPRESSION: No acute cardiopulmonary process copyright 2011 [employer]- All Rights Reserved Assessment and Plan - Diagnosis (1) Acute metabolic encephalopathy Is this a current diagnosis for this admission?: Yes Plan: Multifactorial: Likely due to combined polypharmacy with Thorazine, hyponatremia, underlying mild cognitive impairment/dementia Stop Thorazine Serum and urine osmolality and urine electrolytes, replete sodium Trend BMP May benefit from neuropsychiatric evaluation outpatient (2) Altered mental status Qualifiers: Altered mental status type: delirium Qualified Code(s): R41.0 - Disorientation, unspecified Is this a current diagnosis for this admission?: Yes (3) Hypertension Qualifiers: Hypertension type: essential hypertension Qualified Code(s): I10 - Essential (primary) hypertension Is this a current diagnosis for this admission?: Yes (4) Hyponatremia Is this a current diagnosis for this admission?: Yes Plan: Unclear etiology, possibly SIADH Given extensive ongoing smoking history, ordered low-dose noncontrast chest CT for cancer screening Salt tablets to be given after tests are ordered above Trend BMP Goal sodium 130 (5) Leukocytosis Qualifiers: Leukocytosis type: unspecified Qualified Code(s): D72.829 - Elevated white blood cell count, unspecified Is this a current diagnosis for this admission?: Yes Plan: Resolved to normal No need for further antibiotics, completed 4 days of Keflex prior to admission and was given Zosyn on day 1 here (6) Tachycardia Is this a current diagnosis for this admission?: Yes Plan: Resolved (7) COPD (chronic obstructive pulmonary disease) Qualifiers: COPD type: unspecified COPD Qualified Code(s): J44.9 - Chronic obstructive pulmonary disease, unspecified Is this a current diagnosis for this admission?: Yes Plan: Stable Continue home inhalers No exacerbation Recently completed prednisone course (8) Hyperlipidemia Qualifiers: Hyperlipidemia type: unspecified Qualified Code(s): E78.5 - Hyperlipidemia, unspecified Is this a current diagnosis for this admission?: Yes - Plan Summary Summary: Patient will be admitted to the medical floor he will receive routine supportive and symptomatic cares. He will be treated with IV fluids using D5LR at 167 mL/h initially. CBCs, metabolic profiles, magnesium levels and additional laboratory or radiographic evaluations will be obtained as appropriate. Ativan 1 mg IV every 4 hours will be administered as needed for anxiety or agitation. Patient will be on a cardiac diet. - Time Time Spent with patient: 25-34 minutes Medications reviewed and adjusted accordingly: Yes Anticipated discharge: Home with Homehealth Within: within 48 hours - Inpatient Certification Based on my medical assessment, after consideration of the patient's comorbidities, presenting symptoms, or acuity I expect that the services needed warrant INPATIENT care.: Yes I certify that my determination is in accordance with my understanding of Medicare's requirements for reasonable and necessary INPATIENT services [42 CFR 412.3e].: Yes Medical Necessity: Significant Comorbidiites Make Outpatient Treatment Too Risky, Need Close Monitoring Due to Risk of Patient Decompensation, Risk of Complication if Not Cared For in Hospital, Risk of Diagnosis Which Will Require Inpatient Eval/Care/Monitoring
--- NOTE | 2020-01-23 15:47 | RADIOLOGY REPORT (SQ) ---
EXAM DESCRIPTION: CT CHEST WITHOUT IMAGES COMPLETED DATE/TIME: 01/23/2020 3:17 pm REASON FOR STUDY: smoker, siadh COMPARISON: Recent radiographs. TECHNIQUE: CT scan performed of the chest without intravenous contrast. Images reviewed with lung, soft tissue and bone windows. Reconstructed coronal and sagittal MPR images reviewed. All images st ored on PACS. All CT scanners at this facility use dose modulation, iterative reconstruction, and/or weight based d osing when appropriate to reduce radiation dose to as low as reasonably achievable (ALARA). [facility]: Dose Right [facility]: CareDose [facility]: Dose Right [facility]: Teradose 4D [facility]: [employer] RADIATION DOSE: CT Rad equipment meets quality standard of care and radiation dose reduction techniq ues were employed. CTDIvol: 17.9 mGy. DLP: 669 mGy-cm. mGy. LIMITATIONS: No technical limitations. FINDINGS: LUNGS AND PLEURA: Suspicious slightly spiculated 1.3 cm left upper lobe nodule image 63/12 3. Adjacent elongated indeterminate 9 mm in greatest axis nodule on the same image. Emphysema and s carring. Largely paraseptal bullous changes. Dependent bilateral lung changes including patchy inte rstitial opacities as well as bronchial wall thickening, mild bronchiectasis, subsegmental atelectasi s with trace pleural thickening. HILAR AND MEDIASTINAL STRUCTURES: No identified masses or abnormal nodes. No obvious aneurysm. HEART AND VASCULAR STRUCTURES: Marked Coronary calcification. Cardiomegaly with trace pericardial th ickening. Dilated ascending aorta, just under 5 cm. UPPER ABDOMEN: Bilateral adrenal nodules. Right measures just at 2.3 cm with Hounsfield units of 13. Left measures 1.3 cm with Hounsfield units of 15. Nonspecific. Bilateral nonobstructive renal mariana culi. Possible periportal edema related to the liver. Incomplete assessment of the abdomen and live r. THYROID AND OTHER SOFT TISSUES: No masses. No adenopathy. BONES: Osteopenic. Lower sternal fracture with minimal displacement. Suspect some surrounding callu s, but no bridging bone. This may be a subacute or chronic fracture. Correlate with injury history and chest symptoms. No underlying lytic bone lesion detected. HARDWARE: None in the chest. OTHER: No other significant findings. IMPRESSION: 1. Suspicious nodules in the left upper lobe. 2. Other lung findings as above. 3. Sternal fracture, suspect subacute injury. 4. Bilateral adrenal nodules may be adenomas but Hounsfield units are greater than 10 and therefore t his cannot be reliably determined. Other abdominal findings include nephrolithiasis and heterogeneou s liver, possible periportal edema. TECHNICAL DOCUMENTATION: JOB ID: [id number] Quality ID # [id number]: Final reports with documentation of one or more dose reduction techniques (e.g., Au tomated exposure control, adjustment of the mA and/or kV according to patient size, use of iterative reconstruction technique) 2010 [employer]- All Rights Reserved Reading location - IP/workstation name: [email or web address]
[2020-01-23 16:41] LABS: APPEARANCE,URINE CLEAR; BILIRUBIN,URINE NEGATIVE (NEGATIVE); COLOR,URINE YELLOW; GLUCOSE, URINE NEGATIVE (NEGATIVE); KETONES,URINE NEGATIVE (NEGATIVE); PROTEIN,URINE NEGATIVE (NEGATIVE); URINE SPECIFIC GRAVITY 1.008
[2020-01-23] MEDS ORDERED: SODIUM CHLORIDE 1 GM TABLET PO ONE (21:00)
[2020-01-23] MEDS: ATORVASTATIN CALCIUM 10 MG TABLET PO SCH (21:34)
[2020-01-24] MEDS: DEXTROSE 5%-LACTATED RINGERS 1,000 ML IV PRN (01:40)
[2020-01-24] MEDS: HEPARIN SOD (PORCINE) 5,000 UNIT/ML 1 ML VIAL SUBCUT SCH ×3 (05:18→21:35)
[2020-01-24 06:21] LABS: HEMATOCRIT 34.6 % (37.9-51.0); HEMOGLOBIN 11.4 g/dL (13.5-17.0); MEAN CORPUSCULAR HGB CONC 33.1 g/dL (32.0-36.0); MEAN CORPUSCULAR VOLUME 82 fl (80-97); PLATELET COUNT 152 10^3/uL (150-450); RED BLOOD COUNT 4.23 10^6/uL (4.35-5.55); RED CELL DISTRIBUTION WIDTH 16.9 % (11.5-14.0); WHITE BLOOD COUNT 6.2 10^3/uL (4.0-10.5)
[2020-01-24 09:07] LABS: ANION GAP 6 (5-19); BLOOD UREA NITROGEN 10 mg/dL (7-20); CALCIUM 8.1 mg/dL (8.4-10.2); CARBON DIOXIDE 24 mmol/L (22-30); CHLORIDE 97 mmol/L (98-107); GLUCOSE 88 mg/dL (75-110); POTASSIUM 4.1 mmol/L (3.6-5.0)
[2020-01-24] MEDS ORDERED: SODIUM CHLORIDE 1 GM TABLET PO SCH (10:00)
[2020-01-24] MEDS: FAMOTIDINE 20 MG TABLET PO SCH ×2 (10:46→21:35)
[2020-01-24] MEDS: DOCUSATE SODIUM 100 MG CAPSULE PO SCH ×2 (10:46→17:58)
[2020-01-24] MEDS: LISINOPRIL 10 MG TABLET PO SCH (10:46)
[2020-01-24] MEDS: DILTIAZEM HCL 240 MG CAPSULE.CR PO SCH (10:47)
[2020-01-24] MEDS: FLUTICASONE/UMECLIDIN/VILANTER 100-62.5-25 MCG/DOSE IH SCH (10:47)
[2020-01-24] MEDS: TRIAMCINOLONE ACETONIDE 0.1% CREAM 15 GM TOP SCH ×2 (10:47→18:04)
--- NOTE | 2020-01-24 15:21 | PDOC PROGRESS REPORT ---
Subjective Subjective:: 01/23/2020 Patient seems to have more energy today and is breathing quite well. He states he feels better overall. His sodium is still low at 127 and my goal is approximately 130 to be safely discharged. Per the son whom I had an extensive conversation with today, the patient has had a lot of salt craving at home and is actually eating a large amount of salt on his food. This is strange given he is admitted here with hyponatremia. I have ordered urine and serum osmolality as well as urine electrolytes. If his sodium reaches 130 or above tomorrow, he can be discharged home with home health for nursing medication teaching and possibly physical therapy. Son is in full agreement with this plan and the patient is as well. I recommend that the patient does not take Thorazine again in the future and that he instead follow-up with an ENT physician to look at his vocal cords. It is possible vocal cords and upper airway is being irritated by continued cigarette smoking which I strongly advised patient to stop doing. 01/24/2020 Extensive conversation with the patient and his son regarding the results we hav e from the CT and laboratory test today. CT chest showed lung nodules and adrenal nodules with a sternal fracture. Patient denies any history of a fall but his son states he may have fallen recently but did not seem to be uncomfortable from this. Ordered increase in salt tablet dosing. Stopped IV fluids. Ordered 24-hour urine catecholamines/metanephrines to rule out pheochromocytoma. Ordered dexamethasone suppression test low-dose to start tonight at 11 PM and discussed with nursing the reasoning behind this. Son and patient in agreement with the plan. Patient has no new complaints other than wanting to go home. He and his son would like patient to have lung/adrenal biopsies done outpatient once his sodium is corrected. This may be a reasonable approach and patient is clinically stable and agreeable to close follow-up at discharge. Reason For Visit: ALTERED MENTAL STATUS Physical Exam Vital Signs: Temp Pulse Resp BP Pulse Ox 97.4 F 72 20 126/70 H 95 01/24/20 11:13 01/24/20 11:13 01/24/20 11:13 01/24/20 11:13 01/24/20 11:13 Intake & Output 01/23/20 01/24/20 01/25/20 06:59 06:59 06:59 Intake Total 4409 3736 120 Output Total 3075 Balance 4409 661 120 Weight 90.1 kg 93.7 kg General appearance: PRESENT: no acute distress, well-developed, well-nourished Head exam: PRESENT: atraumatic, normocephalic Eye exam: PRESENT: conjunctiva pink Mouth exam: PRESENT: moist Respiratory exam: PRESENT: clear to auscultation lorena, wheezes - Very mild. ABSENT: rales, rhonchi Cardiovascular exam: PRESENT: RRR. ABSENT: diastolic murmur, rubs, systolic murmur GI/Abdominal exam: PRESENT: normal bowel sounds, soft. ABSENT: distended, guarding, mass, organolmegaly, rebound, tenderness Extremities exam: ABSENT: pedal edema Neurological exam: PRESENT: alert, awake, oriented to person, oriented to place Psychiatric exam: PRESENT: appropriate affect Skin exam: PRESENT: dry, intact, warm Results Laboratory Results: 01/24/20 05:48 01/24/20 05:48 01/23/20 01/23/20 01/23/20 14:36 15:55 15:55 WBC RBC Hgb Hct MCV MCH MCHC RDW Plt Count Sodium Potassium Chloride Carbon Dioxide Anion Gap BUN Creatinine Est GFR ( Amer) Glucose Serum Osmolality 263 L Calcium Urine Color YELLOW Urine Appearance CLEAR Urine pH 7.0 Ur Specific [place] 1.008 Urine Protein NEGATIVE Urine Glucose (UA) NEGATIVE Urine Ketones NEGATIVE Urine Blood SMALL H Urine RBC (Auto) 1 Urine Osmolality 346 01/24/20 01/24/20 01/24/20 05:48 05:48 14:07 WBC 6.2 RBC 4.23 L Hgb 11.4 L Hct 34.6 L MCV 82 MCH 27.0 MCHC 33.1 RDW 16.9 H Plt Count 152 Sodium 127.1 L Potassium 4.1 Chloride 97 L Carbon Dioxide 24 Anion Gap 6 BUN 10 Creatinine 0.58 Est GFR ( Amer) > 60 Glucose 88 Serum Osmolality Calcium 8.1 L Urine Color Urine Appearance Urine pH Ur Specific [place] Urine Protein Urine Glucose (UA) Urine Ketones Urine Blood Urine RBC (Auto) Urine Osmolality 359 01/22/20 00:02 Blood Blood Culture (PCR) - Final Staphylococcus Species Streptococcus Species 01/21/20 23:12 Blood Blood Culture (PCR) - Final Staphylococcus Species Streptococcus Species 01/21/20 19:50 Troponin I 0.033 Impressions: Head CT 01/21/20 19:39 IMPRESSION: 1. No acute intracranial hemorrhage, mass, or evidence of acute territorial infarct. 2. Moderate chronic small vessel ischemic change is stable. Intracranial atherosclerosis. EVIDENCE OF ACUTE STROKE: NO. Abdomen Ultrasound 01/21/20 22:57 IMPRESSION: 1. Hepatomegaly with heterogeneous echogenicity of the liver. There are several small focal areas of increased echogenicity within the liver which may represent incidental hepatic hemangiomas. 2. No evidence of acute gallbladder pathology. 3. Suspect nonobstructing right nephrolithiasis. Chest X-Ray 01/22/20 00:00 IMPRESSION: No acute cardiopulmonary process copyright 2010 [employer]- All Rights Reserved Chest CT 01/23/20 00:00 IMPRESSION: 1. Suspicious nodules in the left upper lobe. 2. Other lung findings as above. 3. Sternal fracture, suspect subacute injury. 4. Bilateral adrenal nodules may be adenomas but Hounsfield units are greater than 10 and therefore this cannot be reliably determined. Other abdominal findings include nephrolithiasis and heterogeneous liver, possible periportal edema. Assessment and Plan - Diagnosis (1) Acute metabolic encephalopathy Is this a current diagnosis for this admission?: Yes Plan: Multifactorial: Likely due to combined polypharmacy with Thorazine, hyponatremia, underlying mild cognitive impairment/dementia Stop Thorazine Serum and urine osmolality and urine electrolytes, replete sodium Trend BMP May benefit from neuropsychiatric evaluation outpatient Continues to gradually improve (2) Altered mental status Qualifiers: Altered mental status type: delirium Qualified Code(s): R41.0 - Disorientation, unspecified Is this a current diagnosis for this admission?: Yes (3) Hypertension Qualifiers: Hypertension type: essential hypertension Qualified Code(s): I10 - Essential (primary) hypertension Is this a current diagnosis for this admission?: Yes (4) Hyponatremia Is this a current diagnosis for this admission?: Yes (5) Leukocytosis Qualifiers: Leukocytosis type: unspecified Qualified Code(s): D72.829 - Elevated white blood cell count, unspecified Is this a current diagnosis for this admission?: Yes (6) Tachycardia Is this a current diagnosis for this admission?: Yes (7) COPD (chronic obstructive pulmonary disease) Qualifiers: COPD type: unspecified COPD Qualified Code(s): J44.9 - Chronic obstructive pulmonary disease, unspecified Is this a current diagnosis for this admission?: Yes (8) Hyperlipidemia Qualifiers: Hyperlipidemia type: unspecified Qualified Code(s): E78.5 - Hyperlipidemia, unspecified Is this a current diagnosis for this admission?: Yes (9) Lung nodules Is this a current diagnosis for this admission?: Yes Plan: New finding here on chest CT Extensive smoking history, concerning for lung cancer Needs lung biopsy which patient and son would like to have outpatient after discharge Needs referral to oncology (10) Adrenal nodule Is this a current diagnosis for this admission?: Yes Plan: 24-hour urine catecholamines/metanephrines Low-dose dexamethasone suppression test Referral to oncology (11) Sternal fracture Is this a current diagnosis for this admission?: Yes Plan: No chest pain Reportedly patient may have had a fall but did not complain of any chest pain at that time either - Plan Summary Summary: Patient will be admitted to the medical floor he will receive routine supportive and symptomatic cares. He will be treated with IV fluids using D5LR at 167 mL/h initially. CBCs, metabolic profiles, magnesium levels and additional laboratory or radiographic evaluations will be obtained as appropriate. Ativan 1 mg IV every 4 hours will be administered as needed for anxiety or agitation. Patient will be on a cardiac diet. - Time Time Spent with patient: 35 or more minutes - Inpatient Certification Based on my medical assessment, after consideration of the patient's comorbidities, presenting symptoms, or acuity I expect that the services needed warrant INPATIENT care.: Yes I certify that my determination is in accordance with my understanding of Medicare's requirements for reasonable and necessary INPATIENT services [42 CFR 412.3e].: Yes Medical Necessity: Significant Comorbidiites Make Outpatient Treatment Too Risky, Need Close Monitoring Due to Risk of Patient Decompensation, Risk of Complication if Not Cared For in Hospital, Risk of Diagnosis Which Will Require Inpatient Eval/Care/Monitoring
[2020-01-24] MEDS: SODIUM CHLORIDE 1 GM TABLET PO SCH (18:03)
[2020-01-24] MEDS: ATORVASTATIN CALCIUM 10 MG TABLET PO SCH (21:35)
[2020-01-24] MEDS ORDERED: DEXAMETHASONE 0.5 MG TABLET PO ONE (23:00)
[2020-01-25] MEDS: HEPARIN SOD (PORCINE) 5,000 UNIT/ML 1 ML VIAL SUBCUT SCH ×2 (06:04→14:31)
[2020-01-25 06:19] LABS: HEMATOCRIT 36.5 % (37.9-51.0); HEMOGLOBIN 12.1 g/dL (13.5-17.0); MEAN CORPUSCULAR HEMOGLOBIN 26.8 pg (27.0-33.4); MEAN CORPUSCULAR VOLUME 81 fl (80-97); PLATELET COUNT 186 10^3/uL (150-450); RED BLOOD COUNT 4.49 10^6/uL (4.35-5.55); RED CELL DISTRIBUTION WIDTH 16.9 % (11.5-14.0)
[2020-01-25 09:19] LABS: ANION GAP 6 (5-19); BLOOD UREA NITROGEN 10 mg/dL (7-20); CALCIUM 8.5 mg/dL (8.4-10.2); CARBON DIOXIDE 26 mmol/L (22-30); CHLORIDE 99 mmol/L (98-107); GLUCOSE 98 mg/dL (75-110); POTASSIUM 4.6 mmol/L (3.6-5.0)
[2020-01-25 09:20] VITALS: BP 141/78
[2020-01-25] MEDS: LISINOPRIL 10 MG TABLET PO SCH (09:55)
[2020-01-25] MEDS: DILTIAZEM HCL 240 MG CAPSULE.CR PO SCH (09:55)
[2020-01-25] MEDS: SODIUM CHLORIDE 1 GM TABLET PO SCH (09:55)
[2020-01-25] MEDS: TRIAMCINOLONE ACETONIDE 0.1% CREAM 15 GM TOP SCH (09:56)
[2020-01-25] MEDS: DOCUSATE SODIUM 100 MG CAPSULE PO SCH (09:56)
[2020-01-25] MEDS: FLUTICASONE/UMECLIDIN/VILANTER 100-62.5-25 MCG/DOSE IH SCH (09:56)
[2020-01-25] MEDS: FAMOTIDINE 20 MG TABLET PO SCH (09:56)
--- NOTE | 2020-01-25 16:58 | PDOC DISCHARGE SUMMARY ---
Impression - Admit/DC Date/PCP Admission Date/Primary Care Provider: 01/22/20 04:23 JACQUELYN LOO MD Discharge Date: 01/25/20 - Discharge Diagnosis (1) Acute metabolic encephalopathy Is this a current diagnosis for this admission?: Yes (2) Altered mental status Is this a current diagnosis for this admission?: Yes (3) Hypertension Is this a current diagnosis for this admission?: Yes (4) Hyponatremia Is this a current diagnosis for this admission?: Yes (5) Leukocytosis Is this a current diagnosis for this admission?: Yes (6) Tachycardia Is this a current diagnosis for this admission?: Yes (7) COPD (chronic obstructive pulmonary disease) Is this a current diagnosis for this admission?: Yes (8) Hyperlipidemia Is this a current diagnosis for this admission?: Yes (9) Lung nodules Is this a current diagnosis for this admission?: Yes (10) Adrenal nodule Is this a current diagnosis for this admission?: Yes (11) Sternal fracture Is this a current diagnosis for this admission?: Yes - Assessment Summary: Per admitting physician: "Patient will be admitted to the medical floor he will receive routine supportive and symptomatic cares. He will be treated with IV fluids using D5LR at 167 mL/h initially. CBCs, metabolic profiles, magnesium levels and additional laboratory or radiographic evaluations will be obtained as appropriate. Ativan 1 mg IV every 4 hours will be administered as needed for anxiety or agitation. Patient will be on a cardiac diet." - Additional Information Resuscitation Status: Full Code Discharge Diet: As Tolerated Discharge Activity: Activity As Tolerated Referrals: JACQUELYN LOO MD [Primary Care Provider] - 02/02/20 10:15 am Prescriptions: Nicotine [Nicoderm 21 mg/24 Hr Transderm Patch] 1 each TD DAILYP PRN #30 patch.td24 PRN Reason: Sodium Chloride [Sodium Chloride 1 gm Tablet] 1 gm PO BID #60 tablet Home Medications: Diltiazem HCl [Diltiazem 24Hr ER (Xr)] 240 mg PO DAILY 08/27/17 Lisinopril [Prinivil 40 mg Tablet] 40 mg PO DAILY 08/27/17 Pravastatin Sodium [Pravachol] 40 mg PO QAM 08/27/17 Clobetasol Propionate [Temovate 0.05% Cream 15 gm] 1 applic TP BID 01/22/20 Fluticasone/Umeclidin/Vilanter [Trelegy 100-62.5-25 Mcg Ellipta 14 Dose/Dpi] 1 each IH DAILY 01/22/20 Pumpkin Seed Extract/Soy Germ [Azo Bladder Control Capsule] 300 mg PO BID 01/22/20 Triamcinolone Acetonide [Aristocort 0.1% Cream] 1 applic TD BID 01/22/20 Nicotine [Nicoderm 21 mg/24 Hr Transderm Patch] 1 each TD DAILYP PRN #30 patch.td24 01/25/20 Sodium Chloride [Sodium Chloride 1 gm Tablet] 1 gm PO BID #60 tablet 01/25/20 History of Present Illiness History of Present Illness: Per admitting physician: "MARLENE BONE SR is a 79 year old male who presented to the emergency room via EMS for altered mental status. The patient is mentally confused unable to provide meaningful historical information to his medical record at this time. EMS was called to the patient's residence because he was confused and lethargic. His last known normal state was on the afternoon of 01/20/2020. EMS had made a prior trip to the patient's house for the same symptoms on the morning of 01/21/2020 however at that point in time he was more arousable and refused to be transported. Since the first EMS trip to the patient's home they noted that he was more confused and more somnolent when they arrived to bring him to the hospital on the evening of 01/21/2020. In the ER the patient was arousable but mumbled incoherently when stimulated. CT scan of the head and chest x-ray were negative. Patient did not have a fever but was noted to have an elevated white blood count of 17,900, although he was also noted to have finished a course of prednisone 40 mg daily x4 days prescribed by Dr. Loo on 01/20/2020, he is currently taking Keflex also prescribed by Dr. Loo. He was additionally noted to have a sodium of 126.9. BUN was 27 and creatinine was 1.06. Patient was initially mildly tachycardic in the 100-110 range but this resolved after receiving IV fluids." Hospital Course Hospital Course: Patient admitted for acute metabolic encephalopathy and confusion, found in ER on admission to have hyponatremia to 126. Reportedly, patient had been taking several days of steroids for his COPD as prescribed by his PCP. Very likely combination of steroid induced delirium as well as symptomatic hyponatremia causing acute confusion. Patient had blood cultures drawn in the ED, very likely contaminated and possibly both bottles inoculated with the same blood sample. These cultures grew strep sella various and staph epidermidis, common blood culture contaminants. As an extra precaution, I called her infectious disease specialist at outside hospital and she agreed that these are likely contaminants but recommended to draw new blood cultures now that the patient is off all antibiotics for several days. If these cultures are positive with the same organisms, patient will need further work-up with echocardiogram and likely readmission to the hospital for IV antibiotics. Patient does not have any apparent sources of infection per my exam. He did have some very small excoriations on his legs but these have healed and are scabbed over now without any signs of abscess formation. His chest x-ray did not show infection and need to get his chest CT. It is possible but unlikely that the "masses" seen on his chest CT could be the result of recurrent aspiration, however patient has not had any difficulty eating/swallowing throughout this admission and he is greatly improved clinically and persistently afebrile despite being off all antibiotics since admission. I believe it is much more likely that these masses seen on CT scan are actually lung cancer given the patient's impressive and ongoing smoking history. I counseled the patient and his son extensively on the need to quit smoking. I had an extensive discussion with the patient about these masses and what he would like to do next for them. He voiced to me that due to his age and other medical problems he did not feel like it would be beneficial to put himself through an invasive biopsy procedure, also noting that he has no intention of going through chemotherapy or other cancer treatments even if the biopsy showed lung cancer or another kind of malignancy. I relayed all this to the patient's son and he would like to speak with the patient at length on his own to make sure this is what is best for him. I ordered a work-up for hormone secreting tumors given the patient also has bilateral adrenal masses that were suspicious for malignancy. His 1 mg dexamethasone suppression test resulted in a normal cortisol level. ACTH is pending at discharge. 24-hour urine catecholamines and metanephrines have been sent and are pending. Repeat blood cultures are drawn prior to discharge and are pending. My discharge plan for the patient is as follows: Follow-up with PCP within 7 days Repeat BMP within 1 week PCP will need to be called by patient/son and they will discuss the patient's adrenal gland chemistries as well as the patient's repeat blood culture results Further discuss with PCP the prospect of pursuing lung/adrenal biopsy if this is what the patient desires. Continue salt tablets. 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 Physical Exam Vital Signs: Temp Pulse Resp BP Pulse Ox 97.7 F 64 16 141/78 H 94 01/25/20 08:00 01/25/20 08:00 01/25/20 08:00 01/25/20 08:00 01/25/20 08:00 Intake & Output 01/24/20 01/25/20 01/26/20 06:59 06:59 06:59 Intake Total 3736 810 200 Output Total 3075 2350 300 Balance 661 -1540 -100 Weight 93.7 kg 91.9 kg General appearance: PRESENT: no acute distress, well-developed, well-nourished Head exam: PRESENT: atraumatic, normocephalic Eye exam: PRESENT: conjunctiva pink Mouth exam: PRESENT: moist Respiratory exam: PRESENT: clear to auscultation lorena. ABSENT: rales, rhonchi, wheezes Cardiovascular exam: PRESENT: RRR. ABSENT: diastolic murmur, rubs, systolic murmur GI/Abdominal exam: PRESENT: normal bowel sounds, soft. ABSENT: distended, guarding, mass, organolmegaly, rebound, tenderness Extremities exam: ABSENT: pedal edema Neurological exam: PRESENT: alert, awake, oriented to person, oriented to place, oriented to time, oriented to situation Psychiatric exam: PRESENT: appropriate affect Skin exam: PRESENT: dry, intact, warm Results Laboratory Results: WBC 7.0 10^3/uL (4.0-10.5) 01/25/20 05:18 RBC 4.49 10^6/uL (4.35-5.55) 01/25/20 05:18 Hgb 12.1 g/dL (13.5-17.0) L 01/25/20 05:18 Hct 36.5 % (37.9-51.0) L 01/25/20 05:18 MCV 81 fl (80-97) 01/25/20 05:18 MCH 26.8 pg (27.0-33.4) L 01/25/20 05:18 MCHC 33.0 g/dL (32.0-36.0) 01/25/20 05:18 RDW 16.9 % (11.5-14.0) H 01/25/20 05:18 Plt Count 186 10^3/uL (150-450) 01/25/20 05:18 Lymph % (Auto) 9.5 % (13-45) L 01/21/20 19:50 Trigg % (Auto) 4.7 % (3-13) 01/21/20 19:50 Eos % (Auto) 0.0 % (0-6) 01/21/20 19:50 Baso % (Auto) 0.1 % (0-2) 01/21/20 19:50 Absolute Neuts (auto) 15.3 10^3/uL (1.7-8.2) H 01/21/20 19:50 Absolute Lymphs (auto) 1.7 10^3/uL (0.5-4.7) 01/21/20 19:50 Absolute Monos (auto) 0.8 10^3/uL (0.1-1.4) 01/21/20 19:50 Absolute Eos (auto) 0.0 10^3/uL (0.0-0.6) 01/21/20 19:50 Absolute Basos (auto) 0.0 10^3/uL (0.0-0.2) 01/21/20 19:50 Seg Neutrophils % 85.7 % (42-78) H 01/21/20 19:50 PT 13.7 SEC (11.4-15.4) 01/21/20 19:50 INR 1.05 01/21/20 19:50 APTT 33.6 SEC (23.5-35.8) 01/21/20 19:50 Sodium 130.5 mmol/L (137-145) L 01/25/20 05:18 Potassium 4.6 mmol/L (3.6-5.0) 01/25/20 05:18 Chloride 99 mmol/L (98-107) 01/25/20 05:18 Carbon Dioxide 26 mmol/L (22-30) 01/25/20 05:18 Anion Gap 6 (5-19) 01/25/20 05:18 BUN 10 mg/dL (7-20) 01/25/20 05:18 Creatinine 0.60 mg/dL (0.52-1.25) 01/25/20 05:18 Est GFR ( Amer) > 60 (>60) 01/25/20 05:18 Est GFR (MDRD) Non-Af > 60 (>60) 01/25/20 05:18 Glucose 98 mg/dL (75-110) 01/25/20 05:18 POC Glucose 94 mg/dL (70-110) 01/21/20 20:01 Serum Osmolality 263 mOsm/kg (275-301) L 01/23/20 14:36 Lactic Acid 2.1 mmol/L (0.7-2.1) 01/22/20 14:35 Calcium 8.5 mg/dL (8.4-10.2) 01/25/20 05:18 Magnesium 1.9 mg/dL (1.6-2.3) 01/23/20 06:05 Total Bilirubin 0.6 mg/dL (0.2-1.3) 01/23/20 06:05 Direct Bilirubin 0.2 mg/dL (0.0-0.4) 01/23/20 06:05 Neonat Total Bilirubin Not Reportable 01/23/20 06:05 Neonat Direct Bilirubin Not Reportable 01/23/20 06:05 Neonat Indirect Bili Not Reportable 01/23/20 06:05 AST 64 U/L (17-59) H 01/23/20 06:05 ALT 56 U/L (<50) H 01/23/20 06:05 Alkaline Phosphatase 299 U/L (38-126) H 01/23/20 06:05 Ammonia < 8.7 umol/L (9-33) L 01/21/20 23:12 Troponin I 0.033 ng/mL 01/21/20 19:50 Total Protein 5.3 g/dL (6.3-8.2) L 01/23/20 06:05 Albumin 2.2 g/dL (3.5-5.0) L 01/23/20 06:05 Triglycerides 116 mg/dL (<150) 01/23/20 06:05 Cholesterol 129.98 mg/dL (0-200) 01/23/20 06:05 LDL Cholesterol Direct 54 mg/dL (<100) 01/23/20 06:05 VLDL Cholesterol 23.0 mg/dL (10-31) 01/23/20 06:05 HDL Cholesterol 48 mg/dL (>40) 01/23/20 06:05 TSH 2.53 uIU/mL (0.47-4.68) 01/23/20 06:05 Free T3 pg/mL 2.06 pg/mL (2.77-5.27) L 01/23/20 06:05 Cortisol AM Sample 9.26 ug/dL (4.46-22.7) 01/25/20 05:18 Urine Color YELLOW 01/23/20 15:55 Urine Appearance CLEAR 01/23/20 15:55 Urine pH 7.0 (5.0-9.0) 01/23/20 15:55 Ur Specific [place] 1.008 01/23/20 15:55 Urine Protein NEGATIVE mg/dL (NEGATIVE) 01/23/20 15:55 Urine Glucose (UA) NEGATIVE mg/dL (NEGATIVE) 01/23/20 15:55 Urine Ketones NEGATIVE mg/dL (NEGATIVE) 01/23/20 15:55 Urine Blood SMALL (NEGATIVE) H 01/23/20 15:55 Urine Nitrite NEGATIVE (NEGATIVE) 01/22/20 00:43 Urine Nitrite (Reflex) NEGATIVE (NEGATIVE) 01/23/20 15:55 Urine Bilirubin NEGATIVE (NEGATIVE) 01/23/20 15:55 Urine Urobilinogen 4.0 mg/dL (<2.0) H 01/23/20 15:55 Ur Leukocyte Esterase NEGATIVE (NEGATIVE) 01/22/20 00:43 Leukocyte Esterase Rfl NEGATIVE (NEGATIVE) 01/23/20 15:55 Urine WBC (Auto) 1 /HPF 01/22/20 00:43 Urine RBC (Auto) 1 /HPF 01/23/20 15:55 U Hyaline Cast (Auto) 3 /LPF 01/22/20 00:43 Urine WBC (Reflex) < 1 /HPF 01/23/20 15:55 Squamous Epi Cells Auto <1 /HPF 01/23/20 15:55 Urine Mucus (Auto) RARE /LPF 01/23/20 15:55 Urine Osmolality 359 mOsm/kg (300-900) 01/24/20 14:07 Urine Sodium 108 mmol/L (30-90) H 01/23/20 15:55 Urine Potassium 17.2 mmol/L (17-99) 01/23/20 15:55 Urine Ascorbic Acid NEGATIVE (NEGATIVE) 01/23/20 15:55 Urine Epinephrine Cancelled 01/25/20 14:10 Ur Epinephrine 24 Hr Cancelled 01/25/20 14:10 Urine Norepinephrine Cancelled 01/25/20 14:10 U Norepinephrine 24 Hr Cancelled 01/25/20 14:10 Urine Dopamine Cancelled 01/25/20 14:10 Ur Dopamine 24 Hr Cancelled 01/25/20 14:10 Urine Opiates Screen NEGATIVE 01/21/20 21:00 Urine Methadone Screen NEGATIVE 01/21/20 21:00 Ur Barbiturates Screen NEGATIVE 01/21/20 21:00 Ur Phencyclidine Scrn NEGATIVE 01/21/20 21:00 Ur Amphetamines Screen NEGATIVE 01/21/20 21:00 U Benzodiazepines Scrn NEGATIVE 01/21/20 21:00 Urine Cocaine Screen NEGATIVE 01/21/20 21:00 U Marijuana (THC) Screen NEGATIVE 01/21/20 21:00 Serum Alcohol < 10 mg/dL (NONE DETECTED) 01/21/20 19:50 SARS-CoV-2 (PCR) NEGATIVE (NEGATIVE) 01/24/20 15:30 01/21/20 19:50 Troponin I 0.033 Impressions: Head CT 01/21/20 19:39 IMPRESSION: 1. No acute intracranial hemorrhage, mass, or evidence of acute territorial infarct. 2. Moderate chronic small vessel ischemic change is stable. Intracranial atherosclerosis. EVIDENCE OF ACUTE STROKE: NO. Abdomen Ultrasound 01/21/20 22:57 IMPRESSION: 1. Hepatomegaly with heterogeneous echogenicity of the liver. There are several small focal areas of increased echogenicity within the liver which may represent incidental hepatic hemangiomas. 2. No evidence of acute gallbladder pathology. 3. Suspect nonobstructing right nephrolithiasis. Chest X-Ray 01/22/20 00:00 IMPRESSION: No acute cardiopulmonary process copyright 2011 [employer]- All Rights Reserved Chest CT 01/23/20 00:00 IMPRESSION: 1. Suspicious nodules in the left upper lobe. 2. Other lung findings as above. 3. Sternal fracture, suspect subacute injury. 4. Bilateral adrenal nodules may be adenomas but Hounsfield units are greater than 10 and therefore this cannot be reliably determined. Other abdominal findings include nephrolithiasis and heterogeneous liver, possible periportal edema. Plan Time Spent: Greater than 30 Minutes Stroke Is this a Stroke Patient?: No Acute Heart Failure - Is this a Heart Failure Patient?: No
[2020-01-28 18:36] LABS: METANEPHRINE URINE 42 ug/L (Undefined); NORMETANEPHRINE URINE 152 ug/L (Undefined)
[2020-01-29 08:24] LABS: METANEPHRINE URINE 24HR 65 ug/24 hr (58-276); NORMETANEPHRINE URINE 24HR 236 ug/24 hr (156-729)
== END 2020-01-25 17:15 | disposition home or self-care (01) | DRG 640 ==
LOC: ER 19:31 → EH 01-22 04:23 → 4S 01-22 05:35
PROVIDERS: ADMIT Emergency Medicine; ATTEND Internal Medicine
DX: E87.1 Hypo-osmolality and hyponatremia (principal); G92 Toxic encephalopathy; S22.20XA Unspecified fracture of sternum, initial encounter for closed fracture; R41.82 Altered mental status, unspecified; I10 Essential (primary) hypertension; R91.8 Other nonspecific abnormal finding of lung field; E27.8 Other specified disorders of adrenal gland; E78.5 Hyperlipidemia, unspecified; T43.3X5A Adverse effect of phenothiazine antipsychotics and neuroleptics, initial encounter; J44.9 Chronic obstructive pulmonary disease, unspecified; D72.829 Elevated white blood cell count, unspecified; F17.210 Nicotine dependence, cigarettes, uncomplicated; F10.20 Alcohol dependence, uncomplicated; W19.XXXA Unspecified fall, initial encounter; Y93.89 Activity, other specified; Y90.0 Blood alcohol level of less than 20 mg/100 ml; Y92.018 Other place in single-family (private) house as the place of occurrence of the external cause; Z03.818 Encounter for observation for suspected exposure to other biological agents ruled out
CPT/HCPCS: 36415; 70450; 71045; 71250; 76705; 80048; 80053; 80061; 80307; 81001; 82024; 82140; 82435; 82533; 82570; 82962; 83605; 83735; 83930; 83935; 84133; 84300; 84443; 84481; 84484; 85025; 85027; 85610; 85730; 87040; 87077; 87150; 87186; 87635; 93005; 93010; 96361; 96365; 96375; 99285; C9803; J1644; J2405; J2543; J3490; J7030; J7121; J8540

== ENCOUNTER 2020-04-11 13:04 | Inpatient (IN) | payer MEDICARE, BC ==
[2020-04-11] MEDS: RINGERS SOLUTION,LACTATED 1,000 ML IV PRN ×2 (13:30→14:31)
--- NOTE | 2020-04-11 13:32 | ER Document Report ---
ED General - General Stated Complaint: WEAKNESS Time Seen by Provider: 04/11/20 13:31 Primary Care Provider: JACQUELYN LOO MD [Primary Care Provider] - Follow up as needed TRAVEL OUTSIDE OF THE [place] IN LAST 30 DAYS: No - HPI Notes: 79-year-old male presents via EMS from home. Information is provided by EMS/nursing report. Family called EMS today because he has not been eating for the past 4 days, his blood pressure has been low, he has had generalized weakness and they have noticed his skin is yellow. Patient does not provide much information, HPI is limited. He denies chest pain, shortness of breath or abdominal pain. He received 500 cc LR via EMS. - Related Data Allergies/Adverse Reactions: No Known Drug Allergies Allergy (Verified 05/29/11 12:43) Past Medical History - Social History Smoking Status: Unknown if Ever Smoked Family History: Hypertension - Past Medical History Cardiac Medical History: Reports: Hx Hypercholesterolemia, Hx Hypertension Pulmonary Medical History: Reports: Hx COPD Denies: Hx Tuberculosis Neurological Medical History: Denies: Hx Seizures Endocrine Medical History: Denies: Hx Diabetes Mellitus Type 1, Hx Diabetes Mellitus Type 2, Hx Hyperthyroidism, Hx Hypothyroidism Renal/ Medical History: Denies: Hx Peritoneal Dialysis GI Medical History: Denies: Hx Cirrhosis, Hx Hepatitis Musculoskeletal Medical History: Reports Hx Arthritis, Denies Hx Gout Skin Medical History: Denies Hx Eczema, Denies Hx Psoriasis Psychiatric Medical History: Denies: Hx Depression Infectious Medical History: Denies: Hx Hepatitis Past Surgical History: Denies: Hx Appendectomy, Hx Bowel Surgery, Hx Cholecystectomy, Hx Coronary Artery Bypass Graft, Hx Gastric Bypass Surgery, Hx Herniorrhaphy, Hx Pacemaker, Hx Tonsillectomy - Immunizations Hx Diphtheria, Pertussis, Tetanus Vaccination: Yes Review of Systems - Review of Systems -: Yes ROS unobtainable due to patient's medical condition Physical Exam - Vital signs Vitals: Temp 98.1 F 04/11/20 13:04 - General General appearance: Alert Notes: Ill-appearing - HEENT Head: Normocephalic, Atraumatic Eyes: Scleral icterus Pupils: PERRL Mucous membranes: Dry Neck: No: Lymphadenopathy - Respiratory Respiratory status: No respiratory distress Chest status: Nontender Breath sounds: Rhonchi - Basis - Cardiovascular Rhythm: Regular Heart sounds: Normal auscultation - Abdominal Inspection: No: Caput medussa Distension: Distended Bowel sounds: Normal Tenderness: Nontender Notes: Angiomata - Genitourinary Scrotum: No: Swelling, Redness - Extremities General lower extremity: No: Edema - Neurological Cognition: Confused Baljinder Coma Scale Eye Opening: Spontaneous Baljinder Coma Scale Verbal: Oriented [place] Coma Scale Motor: Obeys Commands [place] Coma Scale Total: 15 Notes: When asked orientation questions, patient replies of "course I know, I'm not stupid", however then does not answer questions about time/place. He does know his name. 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 On exam he is alert, however disoriented to time/place. He does not exhibit any gross neuro deficits. Generalized symmetric weakness. He is noted to be jaundiced with scleral icterus. He has some rhonchi at bases. Abdomen is soft and without focal area of tenderness. He does have some angiomata on his chest and abdomen as well. Given the painless jaundice, I am concerned for the pancreatic mass versus biliary obstruction versus potentially CBD stone. Start with CT abdomen. I review his admission from December of this year, looks like he did is still have a gallbladder, it had no gallstones seen at that time. He additionally is hypo-tensive, map greater than 65, not tachycardic and afebrile. Suspecting a hypovolemic type picture, will start with 2 L of LR. Sepsis of course is on the differential as well. Given the concern for liver dysfunction, will CT head given at risk for bleeding. Check chest x-ray to evaluate consolidation. Additionally per his December admission, he was admitted for hyponatremia, found to have lung and adrenal nodules, unsure if these were ever biopsied. 04/11/20 14:28 Labs reviewed. Leukocytosis with left shift. Hemoglobin 9.4, was 12 on January 24. Elevated INR and PTT. No acidosis on VBG. Mild hyponatremia, mild hypokalemia. Creatinine is within normal limits. No elevation of lactic acid. Direct hyperbilirubinemia. LFTs okay. No elevation of ammonia. No elevation of CK. Troponin negative. Proteinalbumin discrepancy. Given the leukocytosis and left shift, will start with empiric Zosyn, imaging pending. 04/11/20 15:59 Patient's blood pressure has improved following fluid boluses, currently 101/64 04/11/20 16:03 CT images and report reviewed. Per radiology, CT head is negative for bleed. CT abdomen quite concerning. There is concern for metastatic disease within the liver causing some ductal dilation, likely from colon cancer, mass seen in sigmoid colon. Additionally appears to be a colovesical fistula. I observe the patient's urine, it is brown/feculent in appearance. Sent for culture. He has received dose of Zosyn. Patient was updated on results. 04/11/20 16:05 Attempted to call to update patient's family, no answer to the numbers listed in demographics 04/11/20 16:24 Able to get in contact with patient son. I updated him on the work-up and poor prognosis. We discussed CODE STATUS. Patient's son states that this time he does not have any DNR or advanced directive in place. At this time he would like his daughter to be a full code. Patient to be admitted to the hospitalist team. - Vital Signs Vital signs: Temp Pulse Resp BP Pulse Ox 98.1 F 15 97/64 L 93 04/11/20 13:04 04/11/20 16:03 04/11/20 16:03 04/11/20 16:03 - Laboratory Result Diagrams: 04/11/20 13:20 04/11/20 13:20 Laboratory results interpreted by me: 04/11/20 04/11/20 04/11/20 13:20 13:20 13:20 WBC 16.9 H RBC 3.28 L Hgb 9.4 L Hct 28.3 L RDW 19.6 H Lymph % (Auto) 11.9 L Absolute Neuts (auto) 14.2 H Seg Neutrophils % 84.0 H PT 19.1 H APTT 45.1 H VBG pH Sodium 130.8 L Potassium 3.4 L Anion Gap 3 L Calcium 7.4 L Total Bilirubin 5.7 H Direct Bilirubin 5.0 H Alkaline Phosphatase 495 H Total Protein 5.2 L Albumin 1.8 L Urine Protein Urine Blood Urine Nitrite Urine Bilirubin Urine Urobilinogen Ur Leukocyte Esterase 04/11/20 04/11/20 13:38 15:50 WBC RBC Hgb Hct RDW Lymph % (Auto) Absolute Neuts (auto) Seg Neutrophils % PT APTT VBG pH 7.46 H Sodium Potassium Anion Gap Calcium Total Bilirubin Direct Bilirubin Alkaline Phosphatase Total Protein Albumin Urine Protein 100 H Urine Blood LARGE H Urine Nitrite POSITIVE H Urine Bilirubin MODERATE H Urine Urobilinogen 4.0 H Ur Leukocyte Esterase MODERATE H - Diagnostic Test Radiology reviewed: Image reviewed, Reports reviewed - EKG Interpretation by Me Additional EKG results interpreted by me: EKG is interpreted by me. Sinus rhythm, rate 91. QRS and QTc within normal limits. No ST segment elevation. There is a PVC. Discharge - Discharge Clinical Impression: Metastatic colon cancer to liver, Obstructive jaundice due to cancer, Coloves ical fistula, Bacterial UTI Hypotension Qualifiers: Hypotension type: hypotension due to hypovolemia Qualified Code(s): I95.89 - Other hypotension; E86.1 - Hypovolemia Disposition: ADMITTED INPATIENT Admitting Provider: Ifrah (Hospitalist) Unit Admitted: Medical Floor Referrals: JACQUELYN LOO MD [Primary Care Provider] - Follow up as needed
[2020-04-11 13:35] LABS: ABSOLUTE MONOCYTES (AUTO) 0.6 10^3/uL (0.1-1.4); ABSOLUTE NEUT (AUTO) 14.2 10^3/uL (1.7-8.2); BASOPHILS % (AUTO) 0.1 % (0-2); EOSINOPHILS % (AUTO) 0.2 % (0-6); HEMATOCRIT 28.3 % (37.9-51.0); HEMOGLOBIN 9.4 g/dL (13.5-17.0); LYMPHOCYTES % (AUTO) 11.9 % (13-45); MEAN CORPUSCULAR HEMOGLOBIN 28.8 pg (27.0-33.4); MEAN CORPUSCULAR HGB CONC 33.3 g/dL (32.0-36.0); MEAN CORPUSCULAR VOLUME 86 fl (80-97); MONOCYTES % (AUTO) 3.8 % (3-13); PLATELET COUNT 198 10^3/uL (150-450); RED BLOOD COUNT 3.28 10^6/uL (4.35-5.55); RED CELL DISTRIBUTION WIDTH 19.6 % (11.5-14.0); TOTAL CELLS COUNTED % (AUTO) 100 %; WHITE BLOOD COUNT 16.9 10^3/uL (4.0-10.5)
[2020-04-11 13:53] LABS: ALBUMIN 1.8 g/dL (3.5-5.0); ALKALINE PHOSPHATASE 495 U/L (38-126); ASPARTATE AMINO TRANSFERASE 52 U/L (17-59); BILIRUBIN,TOTAL 5.7 mg/dL (0.2-1.3); BLOOD UREA NITROGEN 13 mg/dL (7-20); CALCIUM 7.4 mg/dL (8.4-10.2); CREATINE KINASE 78 U/L (55-170); GLUCOSE 106 mg/dL (75-110); POTASSIUM 3.4 mmol/L (3.6-5.0); TOTAL PROTEIN 5.2 g/dL (6.3-8.2)
[2020-04-11 13:54] LABS: INTERNATIONAL RATION (INR) 1.59; PROTHROMBIN TIME 19.1 SEC (11.4-15.4)
[2020-04-11 13:55] LABS: PARTIAL THROMBOPLASTIN TIME 45.1 SEC (23.5-35.8)
[2020-04-11 13:58] LABS: CARBON DIOXIDE 26 mmol/L (22-30); CHLORIDE 102 mmol/L (98-107)
[2020-04-11 13:59] LABS: ANION GAP 3 (5-19)
[2020-04-11 14:05] LABS: CREATINE KINASE MB < 0.22 ng/mL (<4.55); TROPONIN I < 0.012 ng/mL
[2020-04-11 14:17] LABS: VENOUS BLOOD BASE EXCESS 2.6 mmol/L; VENOUS BLOOD HCO3 26.6 mmol/L (20-32); VENOUS BLOOD PCO2 38.4 mmHg (35-63); VENOUS BLOOD PH 7.46 (7.30-7.42)
[2020-04-11] MEDS ORDERED: PIPERACILLIN/TAZOBACTAM 3.375 GM VIAL IV ONE (14:26)
--- NOTE | 2020-04-11 14:49 | RADIOLOGY REPORT (SQ) ---
EXAM DESCRIPTION: CHEST SINGLE VIEW IMAGES COMPLETED DATE/TIME: 04/11/2020 2:37 pm REASON FOR STUDY: evla consolidation COMPARISON: 01/21/2020 EXAM PARAMETERS: NUMBER OF VIEWS: One view. TECHNIQUE: Single frontal radiographic view of the chest acquired. RADIATION DOSE: NA LIMITATIONS: None. FINDINGS: LUNGS AND PLEURA: Hyperexpansion. No focal consolidation. No effusions or pneumothorax. MEDIASTINUM AND HILAR STRUCTURES: No masses. Contour normal. HEART AND VASCULAR STRUCTURES: Stable in appearance. BONES: No acute findings. HARDWARE: None in the chest. OTHER: No other significant finding. IMPRESSION: COPD. No acute findings. TECHNICAL DOCUMENTATION: JOB ID: [id number] 2010 [employer]- All Rights Reserved Reading location - IP/workstation name: [email or web address]
[2020-04-11 14:56] LABS: PHOSPHORUS 3.7 mg/dL (2.5-4.5)
--- NOTE | 2020-04-11 15:24 | RADIOLOGY REPORT (SQ) ---
EXAM DESCRIPTION: CT HEAD WITHOUT IMAGES COMPLETED DATE/TIME: 04/11/2020 3:15 pm REASON FOR STUDY: altered mental status COMPARISON: 01/21/2020 TECHNIQUE: Axial images acquired through the brain without intravenous contrast. Images reviewed wi th bone, brain and subdural windows. Additional sagittal and coronal reconstructions were generated. Images stored on PACS. All CT scanners at this facility use dose modulation, iterative reconstruction, and/or weight based d osing when appropriate to reduce radiation dose to as low as reasonably achievable (ALARA). [facility]: Dose Right [facility]: CareDose [facility]: Dose Right [facility]: Teradose 4D [facility]: PlaySight RADIATION DOSE: CT Rad equipment meets quality standard of care and radiation dose reduction techniq ues were employed. CTDIvol: 53.2 mGy. DLP: 1257 mGy-cm.mGy. LIMITATIONS: None. FINDINGS: VENTRICLES: Prominent. CEREBRUM: No masses. No hemorrhage. No midline shift. Areas of low density in the white matter mos t likely due to chronic micro-vascular ischemic change. No evidence for acute infarction. CEREBELLUM: No masses. No hemorrhage. No alteration of density. No evidence for acute infarction. EXTRAAXIAL SPACES: Age-related involutional change. No fluid collections. No masses. ORBITS AND GLOBE: No intra- or extraconal masses. Normal contour of globe without masses. CALVARIUM: No fracture. PARANASAL SINUSES: Retention cyst or polyp is again noted thin left maxillary sinus. SOFT TISSUES: No mass or hematoma. OTHER: No other significant finding. IMPRESSION: CHRONIC CHANGES OF ATROPHY AND MICROVASCULAR ISCHEMIA. NO ACUTE PROCESS. EVIDENCE OF ACUTE STROKE: NO. TECHNICAL DOCUMENTATION: JOB ID: [id number] Quality ID # 436: Final reports with documentation of one or more dose reduction techniques (e.g., Au tomated exposure control, adjustment of the mA and/or kV according to patient size, use of iterative reconstruction technique) 2010 [employer]- All Rights Reserved Reading location - IP/workstation name: [email or web address]
--- NOTE | 2020-04-11 15:34 | RADIOLOGY REPORT (SQ) ---
EXAM DESCRIPTION: CT ABD/PELVIS WITH IV ONLY IMAGES COMPLETED DATE/TIME: 04/11/2020 3:14 pm REASON FOR STUDY: jaundice, AMS, eval pancreatic-biliary pathology COMPARISON: None. TECHNIQUE: CT scan of the abdomen and pelvis performed using helical scanning technique with dynamic intravenous contrast injection. No oral contrast. Images reviewed with lung, soft tissue, and bone windows. Reconstructed coronal and sagittal MPR images reviewed. Delayed images for evaluation of the urinary system also acquired. All images stored on PACS. All CT scanners at this facility use dose modulation, iterative reconstruction, and/or weight based d osing when appropriate to reduce radiation dose to as low as reasonably achievable (ALARA). [facility]: Dose Right [facility]: CareDose [facility]: Dose Right [facility]: Teradose 4D [facility]: Sourcebits CONTRAST TYPE AND DOSE: contrast/concentration: Isovue 350.00 mmol/ml; Total Contrast Delivered: 90. 0 ml; Total Saline Delivered: 63.0 ml RENAL FUNCTION: BUN 13, creatinine 0.72 RADIATION DOSE: CT Rad equipment meets quality standard of care and radiation dose reduction techniq ues were employed. CTDIvol: 17.2 - 19.9 mGy. DLP: 2058 mGy-cm.. LIMITATIONS: None. FINDINGS: LOWER CHEST: There are small bilateral pleural effusions and basilar atelectasis or pneumo carlos. No pneumothorax. LIVER: Heterogeneous attenuation throughout the liver with dilated intrahepatic bile ducts. Possible focal lesion in the periphery of the right lobe best demonstrated on series 5, image 20. There is a symmetric dilatation of the left hepatic lobe bile ducts. Extrahepatic ducts are nondilated. SPLEEN: Normal size. No focal lesions. PANCREAS: No masses. No significant calcifications. No adjacent inflammation or peripancreatic fluid collections. Pancreatic duct not dilated. GALLBLADDER: Mild pericholecystic edema is suggested on coronal imaging. ADRENAL GLANDS: Small bilateral adrenal lesions. These are nonspecific but do not meet criteria for simple adenomas. No calcification. On the right the nodule measures 2 cm. On the left the nodule m easures 1.3 cm. Metastatic disease cannot be excluded. RIGHT KIDNEY AND URETER: No solid masses. No significant calcifications. No hydronephrosis or hyd roureter. LEFT KIDNEY AND URETER: No solid masses. No significant calcifications. No hydronephrosis or hydr oureter. AORTA AND VESSELS: No aneurysm. No dissection. Renal arteries, SMA, celiac without stenosis. RETROPERITONEUM: No retroperitoneal adenopathy, hemorrhage or masses. BOWEL AND PERITONEAL CAVITY: There is a large mass in the left lower quadrant most consistent with co lonic neoplasm. No evidence of mechanical obstruction. The mass lesion measures approximately 6.6 x 8.9 cm. APPENDIX: Not visualized. PELVIS: The bladder is decompressed. Bladder wall appears thickened there is air in the bladder. Co lovesical fistula is suspected. ABDOMINAL WALL: No masses. No hernias. BONES: Mild wedging of L3. Mild wedging of T12. Age is indeterminate. OTHER: No other significant finding. IMPRESSION: 1. Heterogeneous attenuation throughout the liver. Findings are suspicious for metastat ic disease. There are dilated intrahepatic ducts left greater than right. Extrahepatic ducts appear normal. 2. Large mass in the left lower quadrant this appears to be within the sigmoid colon consistent with colon carcinoma. This measures up to 6.6 x 8.9 cm. 3. Thickened bladder wall with probable colovesical fistula. 4. Small pleural effusions and basilar atelectasis or pneumonia. 5. Bilateral adrenal lesions. Metastatic disease cannot be excluded. TECHNICAL DOCUMENTATION: JOB ID: [id number] Quality ID # 436: Final reports with documentation of one or more dose reduction techniques (e.g., Au tomated exposure control, adjustment of the mA and/or kV according to patient size, use of iterative reconstruction technique) 2010 [employer]- All Rights Reserved Reading location - IP/workstation name: [email or web address]
[2020-04-11 16:17] LABS: APPEARANCE,URINE TURBID; BILIRUBIN,URINE MODERATE (NEGATIVE); GLUCOSE, URINE NEGATIVE (NEGATIVE); KETONES,URINE NEGATIVE (NEGATIVE); LEUKOCYTE ESTERASE,URINE MODERATE (NEGATIVE); NITRITE,URINE POSITIVE (NEGATIVE); PROTEIN,URINE 100 mg/dL (NEGATIVE)
[2020-04-11 16:18] LABS: COLOR,URINE BROWN
[2020-04-11 16:22] LABS: URINE SPECIFIC GRAVITY > 1.060
[2020-04-11] MEDS: POTASSI CL 20 MEQ/50 ML RIDER 20 MEQ/50 ML RTUPB IV SCH ×2 (17:57→20:23)
[2020-04-11] MEDS ORDERED: ONDANSETRON 4 MG TAB.RAPDIS PO PRN (18:34)
[2020-04-11] MEDS ORDERED: ACETAMINOPHEN 325 MG TABLET PO PRN (18:34)
[2020-04-11] MEDS ORDERED: ONDANSETRON HCL INJ/PF 4 MG/2 ML SDV IV PRN (18:34)
[2020-04-11] MEDS ORDERED: MORPHINE SULFATE 10 MG/ML INJ IV PRN ×3 (18:37)
[2020-04-11] MEDS ORDERED: HALOPERIDOL LACTATE INJ 5 MG/1 ML VIAL IV PRN ×2 (18:38→18:43)
[2020-04-11] MEDS ORDERED: LORAZEPAM INJ 2 MG/1 ML VIAL IV PRN (18:39)
--- NOTE | 2020-04-11 18:56 | PDOC H&P ---
History of Present Illness Admission Date/PCP: 04/11/20 17:10 JACQUELYN LOO MD History of Present Illness: MARLENE BONE SR is a 79 year old male with past medical history signif icant for COPD, known lung nodules and adrenal nodules who presents the ED with multiple day history of not eating or drinking and severe lethargy, brought by EMS at request of the patient's son. See my copied forward note from his previous admission below for details on his cancer diagnosis from his last admission. Patient is obtunded on admission here and cannot answer any questions other than very simple yes or no questions. Extensive conversation with son on the phone in the room with the patient on admission and the son states he is the medical power of contracts attorney and he would like the patient to be made comfort measures with DNR/DNI CODE STATUS. He does not want the patient to suffer and wants him to be kept comfortable and brought home on hospice hopefully tomorrow after we can order some appropriate home equipment. Case management consult placed. Admit to [facility]. Discussed with nursing. FROM PRIOR DC SUMMARY: "Patient admitted for acute metabolic encephalopathy and confusion, found in ER on admission to have hyponatremia to 126. Reportedly, patient had been taking several days of steroids for his COPD as prescribed by his PCP. Very likely combination of steroid induced delirium as well as symptomatic hyponatremia causing acute confusion. Patient had blood cultures drawn in the ED, very likely contaminated and possibly both bottles inoculated with the same blood sample. These cultures grew strep sella various and staph epidermidis, common blood culture contaminants. As an extra precaution, I called her infectious disease specialist at outside hospital and she agreed that these are likely contaminants but recommended to draw new blood cultures now that the patient is off all antibiotics for several days. If these cultures are positive with the same organisms, patient will need further work-up with echocardiogram and likely readmission to the hospital for IV antibiotics. Patient does not have any apparent sources of infection per my exam. He did have some very small excoriations on his legs but these have healed and are scabbed over now without any signs of abscess formation. His chest x-ray did not show infection and need to get his chest CT. It is possible but unlikely that the "masses" seen on his chest CT could be the result of recurrent aspiration, however patient has not had any difficulty eating/swallowing throughout this admission and he is greatly improved clinically and persistently afebrile despite being off all antibiotics since admission. I believe it is much more likely that these masses seen on CT scan are actually lung cancer given the patient's impressive and ongoing smoking history. I counseled the patient and his son extensively on the need to quit smoking. I had an extensive discussion with the patient about these masses and what he would like to do next for them. He voiced to me that due to his age and other medical problems he did not feel like it would be beneficial to put himself through an invasive biopsy procedure, also noting that he has no intention of going through chemotherapy or other cancer treatments even if the biopsy showed lung cancer or another kind of malignancy. I relayed all this to the patient's son and he would like to speak with the patient at length on his own to make sure this is what is best for him. I ordered a work-up for hormone secreting tumors given the patient also has bilateral adrenal masses that were suspicious for malignancy. His 1 mg dexamethasone suppression test resulted in a normal cortisol level. ACTH is pending at discharge. 24-hour urine rolan cholamines and metanephrines have been sent and are pending. Repeat blood cultures are drawn prior to discharge and are pending. My discharge plan for the patient is as follows: Follow-up with PCP within 7 days Repeat BMP within 1 week PCP will need to be called by patient/son and they will discuss the patient's adrenal gland chemistries as well as the patient's repeat blood culture results Further discuss with PCP the prospect of pursuing lung/adrenal biopsy if this is what the patient desires. Continue salt tablets. 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 this cannot be determined for sure unless a lung biopsy is done." Past Medical History Cardiac Medical History: Reports: Atrial Fibrillation, Hyperlipidema, Hypertension Pulmonary Medical History: Reports: Chronic Obstructive Pulmonary Disease (COPD) Denies: Tuberculosis Neurological Medical History: Denies: Seizures Endocrine Medical History: Denies: Diabetes Mellitus Type 1, Diabetes Mellitus Type 2, Hyperthyroidism, Hypothyroidism GI Medical History: Denies: Cirrhosis, Hepatitis Musculoskeltal Medical History: Reports: Arthritis Denies: Gout Skin Medical History: Denies: Eczema, Psoriasis Psychiatric Medical History: Denies: Depression Hematology: Denies: Anemia, Bleeding Tendencies Past Surgical History Past Surgical History: Denies: Appendectomy, Cholecystectomy, Coronary Artery Bypass Graft, Gastric Bypass Surgery, Herniorrhaphy, Pacemaker, Tonsillectomy Social History Smoking Status: Unknown if Ever Smoked Electronic Cigarette use?: No Frequency of Alcohol Use: Heavy - 3-4 drinks with hard liquor daily Hx Recreational Drug Use: No Drugs: None Hx Prescription Drug Abuse: No - Advance Directive Resuscitation Status: Comfort Measures Only Surrogate healthcare decision maker:: Son Family History Family History: Reviewed & Not Pertinent, Hypertension Parental Family History Reviewed: Yes Children Family History Reviewed: Yes Sibling(s) Family History Reviewed.: Yes Medication/Allergy Home Medications: Diltiazem HCl [Diltiazem 24Hr ER (Xr)] 240 mg PO DAILY 08/27/17 Lisinopril [Prinivil 40 mg Tablet] 40 mg PO DAILY 08/27/17 Pravastatin Sodium [Pravachol] 40 mg PO QAM 08/27/17 Sodium Chloride [Sodium Chloride 1 gm Tablet] 1 gm PO BID #60 tablet 01/25/20 Nicotine [Nicoderm 21 mg/24 Hr Transderm Patch] 1 each TD DAILYP PRN 04/11/20 Allergies/Adverse Reactions: No Known Drug Allergies Allergy (Verified 05/29/11 12:43) Review of Systems All systems: reviewed and no additional remarkable complaints except as stated - Review of systems not obtainable due to patient confusion Physical Exam Vital Signs: Temp Pulse Resp BP Pulse Ox 98.1 F 15 97/64 L 93 04/11/20 13:04 04/11/20 16:03 04/11/20 16:03 04/11/20 16:03 Intake & Output 04/10/20 04/11/20 04/12/20 06:59 06:59 06:59 Intake Total 1999 Balance 1999 Weight 85.7 kg General appearance: PRESENT: no acute distress, disheveled, thin Head exam: PRESENT: atraumatic, normocephalic Eye exam: PRESENT: scleral icterus Mouth exam: PRESENT: dry mucosa Respiratory exam: PRESENT: clear to auscultation lorena. ABSENT: rales, rhonchi, wheezes Cardiovascular exam: PRESENT: RRR. ABSENT: diastolic murmur, rubs, systolic murmur GI/Abdominal exam: PRESENT: normal bowel sounds, organolmegaly - Hepatomegaly, soft. ABSENT: distended, guarding, mass, rebound, tenderness Rectal exam: PRESENT: deferred Neurological exam: PRESENT: alert, awake. ABSENT: oriented to person, oriented to place, oriented to time, oriented to situation Psychiatric exam: PRESENT: flat affect, normal mood Skin exam: PRESENT: dry, intact, warm Results Laboratory Results: 04/11/20 13:20 04/11/20 13:20 04/11/20 04/11/20 04/11/20 13:20 13:20 13:20 WBC 16.9 H RBC 3.28 L Hgb 9.4 L Hct 28.3 L MCV 86 MCH 28.8 MCHC 33.3 RDW 19.6 H Plt Count 198 Seg Neutrophils % 84.0 H VBG pH VBG pCO2 VBG HCO3 VBG Base Excess Sodium 130.8 L Cancelled Potassium 3.4 L Cancelled Chloride 102 Cancelled Carbon Dioxide 26 Cancelled Anion Gap 3 L Cancelled BUN 13 Cancelled Creatinine 0.72 Cancelled Est GFR ( Amer) > 60 Cancelled Est GFR (Non-Af Amer) Cancelled Glucose 106 Cancelled Lactic Acid Calcium 7.4 L Cancelled Phosphorus 3.7 Magnesium 2.2 Total Bilirubin 5.7 H Cancelled AST 52 Cancelled Alkaline Phosphatase 495 H Cancelled Ammonia Total Protein 5.2 L Cancelled Albumin 1.8 L Cancelled Lipase 24.7 Urine Color Urine Appearance Urine pH Ur Specific [place] Urine Protein Urine Glucose (UA) Urine Ketones Urine Blood Urine Nitrite Ur Leukocyte Esterase Urine WBC (Auto) Urine RBC (Auto) 04/11/20 04/11/20 04/11/20 13:38 13:38 13:38 WBC RBC Hgb Hct MCV MCH MCHC RDW Plt Count Seg Neutrophils % VBG pH 7.46 H VBG pCO2 38.4 VBG HCO3 26.6 VBG Base Excess 2.6 Sodium Potassium Chloride Carbon Dioxide Anion Gap BUN Creatinine Est GFR ( Amer) Est GFR (Non-Af Amer) Glucose Lactic Acid 1.7 Calcium Phosphorus Magnesium Total Bilirubin AST Alkaline Phosphatase Ammonia 17.7 Total Protein Albumin Lipase Urine Color Urine Appearance Urine pH Ur Specific [place] Urine Protein Urine Glucose (UA) Urine Ketones Urine Blood Urine Nitrite Ur Leukocyte Esterase Urine WBC (Auto) Urine RBC (Auto) 04/11/20 15:50 WBC RBC Hgb Hct MCV MCH MCHC RDW Plt Count Seg Neutrophils % VBG pH VBG pCO2 VBG HCO3 VBG Base Excess Sodium Potassium Chloride Carbon Dioxide Anion Gap BUN Creatinine Est GFR ( Amer) Est GFR (Non-Af Amer) Glucose Lactic Acid Calcium Phosphorus Magnesium Total Bilirubin AST Alkaline Phosphatase Ammonia Total Protein Albumin Lipase Urine Color BROWN Urine Appearance TURBID Urine pH 6.0 Ur Specific [place] > 1.060 Urine Protein 100 H Urine Glucose (UA) NEGATIVE Urine Ketones NEGATIVE Urine Blood LARGE H Urine Nitrite POSITIVE H Ur Leukocyte Esterase MODERATE H Urine WBC (Auto) >182 Urine RBC (Auto) >182 04/11/20 04/11/20 13:20 13:20 Creatine Kinase 78 CK-MB (CK-2) < 0.22 Troponin I < 0.012 Impressions: Abdomen/Pelvis CT 04/11/20 13:46 IMPRESSION: 1. Heterogeneous attenuation throughout the liver. Findings are suspicious for metastatic disease. There are dilated intrahepatic ducts left greater than right. Extrahepatic ducts appear normal. 2. Large mass in the left lower quadrant this appears to be within the sigmoid colon consistent with colon carcinoma. This measures up to 6.6 x 8.9 cm. 3. Thickened bladder wall with probable colovesical fistula. 4. Small pleural effusions and basilar atelectasis or pneumonia. 5. Bilateral adrenal lesions. Metastatic disease cannot be excluded. Chest X-Ray 04/11/20 13:48 IMPRESSION: COPD. No acute findings. Head CT 04/11/20 13:48 IMPRESSION: CHRONIC CHANGES OF ATROPHY AND MICROVASCULAR ISCHEMIA. NO ACUTE PROCESS. EVIDENCE OF ACUTE STROKE: NO. Assessment and Plan - Diagnosis (1) Comfort measures only status Is this a current diagnosis for this admission?: Yes Plan: Extensive discussion with the patient's son in the presence of the patient and the patient's son states he is medical power of contracts attorney and he would like the patient to be made comfort measures only and DNR/DNI PRN medications ordered for pain/anxiety/agitation/constipation/nausea Discussed with nursing Case management consult for hospice: Patient will need home equipment ordered (2) Colovesical fistula Is this a current diagnosis for this admission?: Yes Plan: Seen on CT abdomen/pelvis Patient was diagnosed with adrenal masses and lung masses at previous admission however he adamantly refused any further work-up or treatment for these and only wanted to be discharged. This was also discussed with the patient's son who states he has been in contact with hospice services in anticipation of the patient needing it (3) Metastatic colon cancer to liver Is this a current diagnosis for this admission?: Yes (4) Obstructive jaundice due to cancer Is this a current diagnosis for this admission?: Yes (5) AMS (altered mental status) Qualifiers: Altered mental status type: delirium Qualified Code(s): R41.0 - Disorientation, unspecified Is this a current diagnosis for this admission?: Yes (6) Acute metabolic encephalopathy Is this a current diagnosis for this admission?: Yes Plan: Multifactorial due to multiple organ involvement liver failure due to cancer which is metastatic (7) Adrenal nodule Is this a current diagnosis for this admission?: Yes (8) COPD (chronic obstructive pulmonary disease) Qualifiers: COPD type: unspecified COPD Qualified Code(s): J44.9 - Chronic obstructive pulmonary disease, unspecified Is this a current diagnosis for this admission?: Yes Plan: Not in acute exacerbation - Time Time Spent with patient: 35 or more minutes Medications reviewed and adjusted accordingly: Yes Anticipated Discharge Disposition: Home with Hospice Anticipated Discharge Timeframe: within 24 hours - Inpatient Certification Based on my medical assessment, after consideration of the patient's comorbidities, presenting symptoms, or acuity I expect that the services needed warrant INPATIENT care.: Yes I certify that my determination is in accordance with my understanding of Medicare's requirements for reasonable and necessary INPATIENT services [42 CFR 412.3e].: Yes Medical Necessity: Significant Comorbidiites Make Outpatient Treatment Too Risky, Need Close Monitoring Due to Risk of Patient Decompensation, Need for P ain Control, Risk of Complication if Not Cared For in Hospital, Risk of Diagnosis Which Will Require Inpatient Eval/Care/Monitoring
--- NOTE | 2020-04-11 18:58 | ADVANCED CARE ---
- Diagnosis (1) Comfort measures only status Diagnosis Current: Yes (2) Colovesical fistula Diagnosis Current: Yes (3) Metastatic colon cancer to liver Diagnosis Current: Yes (4) Obstructive jaundice due to cancer Diagnosis Current: Yes (5) AMS (altered mental status) Diagnosis Current: Yes (6) Acute metabolic encephalopathy Diagnosis Current: Yes (7) Adrenal nodule Diagnosis Current: Yes (8) COPD (chronic obstructive pulmonary disease) Diagnosis Current: Yes Attendance: Patient and son via telephone Resuscitation Status: Comfort Measures Only Discussion: All aspects of code status discussed with patient/POA including cardioversion, chest compressions, and intubation and the patient/POA indicated they wish to be comfort measures only, DNR/DNI MPOA is designated as: Man Virk Pramod Time Spent: Greater than 16 minutes
--- NOTE | 2020-04-11 19:12 | EKG REPORT ---
SEVERITY:- OTHERWISE NORMAL ECG - SINUS RHYTHM VENTRICULAR PREMATURE COMPLEX LOW VOLTAGE IN FRONTAL LEADS : Confirmed by: Eliazar Cannon 11-Apr-2020 19:11:37
[2020-04-12 09:27] VITALS: BP 102/58
[2020-04-12] MEDS ORDERED: DOCUSATE SODIUM 100 MG CAPSULE PO SCH (10:00)
[2020-04-12] MEDS ORDERED: ONDANSETRON HCL INJ/PF 4 MG/2 ML SDV IV PRN (12:30)
[2020-04-12] MEDS ORDERED: ONDANSETRON 4 MG TAB.RAPDIS PO PRN (12:30)
--- NOTE | 2020-04-12 16:29 | PDOC DISCHARGE SUMMARY ---
Impression - Admit/DC Date/PCP Admission Date/Primary Care Provider: 04/11/20 17:10 JACQUELYN LOO MD Discharge Date: 04/12/20 - Discharge Diagnosis (1) Comfort measures only status Is this a current diagnosis for this admission?: Yes (2) Colovesical fistula Is this a current diagnosis for this admission?: Yes (3) Metastatic colon cancer to liver Is this a current diagnosis for this admission?: Yes (4) Obstructive jaundice due to cancer Is this a current diagnosis for this admission?: Yes (5) AMS (altered mental status) Is this a current diagnosis for this admission?: Yes (6) Acute metabolic encephalopathy Is this a current diagnosis for this admission?: Yes (7) Adrenal nodule Is this a current diagnosis for this admission?: Yes (8) COPD (chronic obstructive pulmonary disease) Is this a current diagnosis for this admission?: Yes - Additional Information Resuscitation Status: Comfort Measures Only Discharge Diet: Other (Comments) - Comfort feeding Discharge Activity: Bedrest Referrals: JACQUELYN LOO MD [Primary Care Provider] - Follow up as needed History of Present Illiness History of Present Illness: MARLENE BONE SR is a 79 year old male with past medical history significant for COPD, known lung nodules and adrenal nodules who presents the ED with multiple day history of not eating or drinking and severe lethargy, brought by EMS at request of the patient's son. See my copied forward note from his previous admission below for details on his cancer diagnosis from his last admission. Patient is obtunded on admission here and cannot answer any questions other than very simple yes or no questions. Extensive conversation with son on the phone in the room with the patient on admission and the son states he is the medical power of associate attorney and he would like the patient to be made comfort measures with DNR/DNI CODE STATUS. He does not want the patient to suffer and wants him to be kept comfortable and brought home on hospice hopefully tomorrow after we can order some appropriate home equipment. Case management consult placed. Admit to MedSurg. Discussed with nursing. FROM PRIOR DC SUMMARY: "Patient admitted for acute metabolic encephalopathy and confusion, found in ER on admission to have hyponatremia to 126. Reportedly, patient had been taking several days of steroids for his COPD as prescribed by his PCP. Very likely combination of steroid induced delirium as well as symptomatic hyponatremia causing acute confusion. Patient had blood cultures drawn in the ED, very likely contaminated and possibly both bottles inoculated with the same blood sample. These cultures grew strep sella various and staph epidermidis, common blood culture contaminants. As an extra precaution, I called her infectious disease specialist at outside hospital and she agreed that these are likely contaminants but recommended to draw new blood cultures now that the patient is off all antibiotics for several days. If these cultures are positive with the same organisms, patient will need further work-up with echocardiogram and likely readmission to the hospital for IV antibiotics. Patient does not have any appa rent sources of infection per my exam. He did have some very small excoriations on his legs but these have healed and are scabbed over now without any signs of abscess formation. His chest x-ray did not show infection and need to get his chest CT. It is possible but unlikely that the "masses" seen on his chest CT could be the result of recurrent aspiration, however patient has not had any difficulty eating/swallowing throughout this admission and he is greatly improved clinically and persistently afebrile despite being off all antibiotics since admission. I believe it is much more likely that these masses seen on CT scan are actually lung cancer given the patient's impressive and ongoing smoking history. I counseled the patient and his son extensively on the need to quit smoking. I had an extensive discussion with the patient about these masses and what he would like to do next for them. He voiced to me that due to his age and other medical problems he did not feel like it would be beneficial to put himself through an invasive biopsy procedure, also noting that he has no intention of going through chemotherapy or other cancer treatments even if the biopsy showed lung cancer or another kind of malignancy. I relayed all this to the patient's son and he would like to speak with the patient at length on his own to make sure this is what is best for him. I ordered a work-up for hormone secreting tumors given the patient also has bilateral adrenal masses that were suspicious for malignancy. His 1 mg dexamethasone suppression test resulted in a normal cortisol level. ACTH is pending at discharge. 24-hour urine catecholamines and metanephrines have been sent and are pending. Repeat blood cultures are drawn prior to discharge and are pending. My discharge plan for the patient is as follows: Follow-up with PCP within 7 days Repeat BMP within 1 week PCP will need to be called by patient/son and they will discuss the patient's adrenal gland chemistries as well as the patient's repeat blood culture results Further discuss with PCP the prospect of pursuing lung/adrenal biopsy if this is what the patient desires. Continue salt tablets. 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 See my copied forward note from his previous admission below for details on his cancer diagnosis from his last admission. Patient is obtunded on admission here and cannot answer any questions other than very simple yes or no questions. Extensive conversation with son on the phone in the room with the patient on admission and the son states he is the medical power of associate attorney and he would like the patient to be made comfort measures with DNR/DNI CODE STATUS. He does not want the patient to suffer and wants him to be kept comfortable and brought home on hospice hopefully tomorrow after we can order some appropriate home equipment. Case management consult placed. Admit to MedSur. Discussed with nursing. FROM PRIOR DC SUMMARY: "Patient admitted for acute metabolic encephalopathy and confusion, found in ER on admission to have hyponatremia to 126. Reportedly, patient had been taking several days of steroids for his COPD as prescribed by his PCP. Very likely combination of steroid induced delirium as well as symptomatic hyponatremia causing acute confusion. Patient had blood cultures drawn in the ED, very likely contaminated and possibly both bottles inoculated with the same blood sample. These cultures grew strep sella various and staph epidermidis, common blood culture contaminants. As an extra precaution, I called her infectious disease specialist at outside hospital and she agreed that these are likely contaminants but recommended to draw new blood cultures now that the patient is off all antibiotics for several days. If these cultures are positive with the same organisms, patient will need further work-up with echocardiogram and likely readmission to the hospital for IV antibiotics. Patient does not have any apparent sources of infection per my exam. He did have some very small excoriations on his legs but these have healed and are scabbed over now without any signs of abscess formation. His chest x-ray did not show infection and need to get his chest CT. It is possible but unlikely that the "masses" seen on his chest CT could be the result of recurrent aspiration, however patient has not had any difficulty eating/swallowing throughout this admission and he is greatly improved clinically and persistently afebrile despite being off all antibiotics since admission. I believe it is much more likely that these masses seen on CT scan are actually lung cancer given the patient's impressive and ongoing smoking history. I counseled the patient and his son extensively on the need to quit smoking. I had an extensive discussion with the patient about these masses and what he would like to do next for them. He voiced to me that due to his age and other medical problems he did not feel like it would be beneficial to put himself through an invasive biopsy procedure, also noting that he has no intention of going through chemotherapy or other cancer treatments even if the biopsy showed lung cancer or another kind of malignancy. I relayed all this to the patient's son and he would like to speak with the patient at length on his own to make sure this is what is best for him. I ordered a work-up for hormone secreting tumors given the patient also has bilateral adrenal masses that were suspicious for malignancy. His 1 mg dexamethasone suppression test resulted in a normal cortisol level. ACTH is pending at discharge. 24-hour urine catecholamines and metanephrines have been sent and are pending. Repeat blood cultures are drawn prior to discharge and are pending. My discharge plan for the patient is as follows: Follow-up with PCP within 7 days Repeat BMP within 1 week PCP will need to be called by patient/son and they will discuss the patient's adrenal gland chemistries as well as the patient's repeat blood culture results Further discuss with PCP the prospect of pursuing lung/adrenal biopsy if this is what the patient desires. Continue salt tablets. 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 Patient's hospital bed is been delivered to his home in hospice nurse will meet the patient at his son's home at 6 PM this evening. Any additional home equipment is planned to be delivered in the next 24 hours per case management. Patient is discharged home with hospice. (1) Comfort measures only status Is this a current diagnosis for this admission?: Yes Plan: Extensive discussion with the patient's son in the presence of the patient and the patient's son states he is medical power of associate attorney and he would like the patient to be made comfort measures only and DNR/DNI PRN medications ordered for pain/anxiety/agitation/constipation/nausea Discussed with nursing Case management consult for hospice: Patient will need home equipment ordered (2) Colovesical fistula Is this a current diagnosis for this admission?: Yes Plan: Seen on CT abdomen/pelvis Patient was diagnosed with adrenal masses and lung masses at previous admission however he adamantly refused any further work-up or treatment for these and only wanted to be discharged. This was also discussed with the patient's son who states he has been in contact with hospice services in anticipation of the patient needing it (3) Metastatic colon cancer to liver Is this a current diagnosis for this admission?: Yes (4) Obstructive jaundice due to cancer Is this a current diagnosis for this admission?: Yes (5) AMS (altered mental status) Qualifiers: Altered mental status type: delirium Qualified Code(s): R41.0 - Disorientation, unspecified Is this a current diagnosis for this admission?: Yes (6) Acute metabolic encephalopathy Is this a current diagnosis for this admission?: Yes Plan: Multifactorial due to multiple organ involvement liver failure due to cancer which is metastatic (7) Adrenal nodule Is this a current diagnosis for this admission?: Yes (8) COPD (chronic obstructive pulmonary disease) Qualifiers: COPD type: unspecified COPD Qualified Code(s): J44.9 - Chronic obstructive pulmonary disease, unspecified Is this a current diagnosis for this admission?: Yes Plan: Not in acute exacerbation Physical Exam Vital Signs: Temp Pulse Resp BP Pulse Ox 97.7 F 78 20 102/58 L 91 L 04/12/20 10:00 04/12/20 07:47 04/12/20 07:47 04/12/20 07:47 04/12/20 07:47 Intake & Output 04/11/20 04/12/20 04/13/20 06:59 06:59 06:59 Intake Total 1999 378 Balance 1999 378 Weight 87.7 kg Exam: General appearance: PRESENT: no acute distress, disheveled, thin, states he would like to go home today Head exam: PRESENT: atraumatic, normocephalic Eye exam: PRESENT: scleral icterus Mouth exam: PRESENT: dry mucosa Respiratory exam: PRESENT: clear to auscultation lore[place]. ABSENT: rales, rhonchi, wheezes Cardiovascular exam: PRESENT: RRR. ABSENT: diastolic murmur, rubs, systolic murmur GI/Abdominal exam: PRESENT: normal bowel sounds, organolmegaly - Hepatomegaly, soft. ABSENT: distended, guarding, mass, rebound, tenderness Rectal exam: PRESENT: deferred Neurological exam: PRESENT: alert, awake. ABSENT: oriented to person, oriented to place, oriented to time, oriented to situation Psychiatric exam: PRESENT: flat affect, normal mood Skin exam: PRESENT: dry, intact, warm Results Laboratory Results: WBC 16.9 10^3/uL (4.0-10.5) H 04/11/20 13:20 RBC 3.28 10^6/uL (4.35-5.55) L 04/11/20 13:20 Hgb 9.4 g/dL (13.5-17.0) L 04/11/20 13:20 Hct 28.3 % (37.9-51.0) L 04/11/20 13:20 MCV 86 fl (80-97) 04/11/20 13:20 MCH 28.8 pg (27.0-33.4) 04/11/20 13:20 MCHC 33.3 g/dL (32.0-36.0) 04/11/20 13:20 RDW 19.6 % (11.5-14.0) H 04/11/20 13:20 Plt Count 198 10^3/uL (150-450) 04/11/20 13:20 Lymph % (Auto) 11.9 % (13-45) L 04/11/20 13:20 [place] % (Auto) 3.8 % (3-13) 04/11/20 13:20 Eos % (Auto) 0.2 % (0-6) 04/11/20 13:20 Baso % (Auto) 0.1 % (0-2) 04/11/20 13:20 Absolute Neuts (auto) 14.2 10^3/uL (1.7-8.2) H 04/11/20 13:20 Absolute Lymphs (auto) 2.0 10^3/uL (0.5-4.7) 04/11/20 13:20 Absolute Monos (auto) 0.6 10^3/uL (0.1-1.4) 04/11/20 13:20 Absolute Eos (auto) 0.0 10^3/uL (0.0-0.6) 04/11/20 13:20 Absolute Basos (auto) 0.0 10^3/uL (0.0-0.2) 04/11/20 13:20 Seg Neutrophils % 84.0 % (42-78) H 04/11/20 13:20 PT 19.1 SEC (11.4-15.4) H 04/11/20 13:20 INR 1.59 04/11/20 13:20 APTT 45.1 SEC (23.5-35.8) H 04/11/20 13:20 VBG pH 7.46 (7.30-7.42) H 04/11/20 13:38 VBG pCO2 38.4 mmHg (35-63) 04/11/20 13:38 VBG HCO3 26.6 mmol/L (20-32) 04/11/20 13:38 VBG Base Excess 2.6 mmol/L 04/11/20 13:38 Sodium 130.8 mmol/L (137-145) L 04/11/20 13:20 Sodium Cancelled 04/11/20 13:20 Potassium 3.4 mmol/L (3.6-5.0) L 04/11/20 13:20 Potassium Cancelled 04/11/20 13:20 Chloride 102 mmol/L (98-107) 04/11/20 13:20 Chloride Cancelled 04/11/20 13:20 Carbon Dioxide 26 mmol/L (22-30) 04/11/20 13:20 Carbon Dioxide Cancelled 04/11/20 13:20 Anion Gap 3 (5-19) L 04/11/20 13:20 Anion Gap Cancelled 04/11/20 13:20 BUN 13 mg/dL (7-20) 04/11/20 13:20 BUN Cancelled 04/11/20 13:20 Creatinine 0.72 mg/dL (0.52-1.25) 04/11/20 13:20 Creatinine Cancelled 04/11/20 13:20 Est GFR ( Amer) > 60 (>60) 04/11/20 13:20 Est GFR ( Amer) Cancelled 04/11/20 13:20 Est GFR (Non-Af Amer) Cancelled 04/11/20 13:20 Est GFR (MDRD) Non-Af > 60 (>60) 04/11/20 13:20 Est GFR (MDRD) Non-Af Cancelled 04/11/20 13:20 Glucose 106 mg/dL (75-110) 04/11/20 13:20 Glucose Cancelled 04/11/20 13:20 Lactic Acid 1.7 mmol/L (0.7-2.1) 04/11/20 13:38 Calcium 7.4 mg/dL (8.4-10.2) L 04/11/20 13:20 Calcium Cancelled 04/11/20 13:20 Phosphorus 3.7 mg/dL (2.5-4.5) 04/11/20 13:20 Magnesium 2.2 mg/dL (1.6-2.3) 04/11/20 13:20 Total Bilirubin 5.7 mg/dL (0.2-1.3) H 04/11/20 13:20 Total Bilirubin Cancelled 04/11/20 13:20 Direct Bilirubin 5.0 mg/dL (0.0-0.4) H 04/11/20 13:20 Direct Bilirubin Cancelled 04/11/20 13:20 Neonat Total Bilirubin Cancelled 04/11/20 13:20 Neonat Total Bilirubin Not Reportable 04/11/20 13:20 Neonat Direct Bilirubin Cancelled 04/11/20 13:20 Neonat Direct Bilirubin Not Reportable 04/11/20 13:20 Neonat Indirect Bili Cancelled 04/11/20 13:20 Neonat Indirect Bili Not Reportable 04/11/20 13:20 AST 52 U/L (17-59) 04/11/20 13:20 AST Cancelled 04/11/20 13:20 ALT 28 U/L (<50) 04/11/20 13:20 ALT Cancelled 04/11/20 13:20 Alkaline Phosphatase 495 U/L (38-126) H 04/11/20 13:20 Alkaline Phosphatase Cancelled 04/11/20 13:20 Ammonia 17.7 umol/L (9-33) 04/11/20 13:38 Creatine Kinase 78 U/L (55-170) 04/11/20 13:20 CK-MB (CK-2) < 0.22 ng/mL (<4.55) 04/11/20 13:20 Troponin I < 0.012 ng/mL 04/11/20 13:20 Total Protein 5.2 g/dL (6.3-8.2) L 04/11/20 13:20 Total Protein Cancelled 04/11/20 13:20 Albumin 1.8 g/dL (3.5-5.0) L 04/11/20 13:20 Albumin Cancelled 04/11/20 13:20 Lipase 24.7 U/L (23-300) 04/11/20 13:20 EGFR Cancelled 04/11/20 13:20 Urine Color BROWN 04/11/20 15:50 Urine Appearance TURBID 04/11/20 15:50 Urine pH 6.0 (5.0-9.0) 04/11/20 15:50 Ur Specific [place] > 1.060 04/11/20 15:50 Urine Protein 100 mg/dL (NEGATIVE) H 04/11/20 15:50 Urine Glucose (UA) NEGATIVE mg/dL (NEGATIVE) 04/11/20 15:50 Urine Ketones NEGATIVE mg/dL (NEGATIVE) 04/11/20 15:50 Urine Blood LARGE (NEGATIVE) H 04/11/20 15:50 Urine Nitrite POSITIVE (NEGATIVE) H 04/11/20 15:50 Urine Bilirubin MODERATE (NEGATIVE) H 04/11/20 15:50 Urine Urobilinogen 4.0 mg/dL (<2.0) H 04/11/20 15:50 Ur Leukocyte Esterase MODERATE (NEGATIVE) H 04/11/20 15:50 Urine WBC (Auto) >182 /HPF 04/11/20 15:50 Urine RBC (Auto) >182 /HPF 04/11/20 15:50 Urine Bacteria (Auto) 2+ /HPF 04/11/20 15:50 Urine WBC Clumps MANY /HPF 04/11/20 15:50 U Non-Squamous Epis Auto 15 /HPF 04/11/20 15:50 Urine Mucus (Auto) MANY /LPF 04/11/20 15:50 Urine Ascorbic Acid NEGATIVE (NEGATIVE) 04/11/20 15:50 04/11/20 13:20 CK-MB (CK-2) < 0.22 Troponin I < 0.012 Impressions: Abdomen/Pelvis CT 04/11/20 13:46 IMPRESSION: 1. Heterogeneous attenuation throughout the liver. Findings are suspicious for metastatic disease. There are dilated intrahepatic ducts left greater than right. Extrahepatic ducts appear normal. 2. Large mass in the left lower quadrant this appears to be within the sigmoid colon consistent with colon carcinoma. This measures up to 6.6 x 8.9 cm. 3. Thickened bladder wall with probable colovesical fistula. 4. Small pleural effusions and basilar atelectasis or pneumonia. 5. Bilateral adrenal lesions. Metastatic disease cannot be excluded. Chest X-Ray 04/11/20 13:48 IMPRESSION: COPD. No acute findings. Head CT 04/11/20 13:48 IMPRESSION: CHRONIC CHANGES OF ATROPHY AND MICROVASCULAR ISCHEMIA. NO ACUTE PROCESS. EVIDENCE OF ACUTE STROKE: NO. Plan Plan of Treatment: Home with hospice Follow-up with PCP as needed Time Spent: Greater than 30 Minutes Stroke Is this a Stroke Patient?: No Acute Heart Failure Is this a Heart Failure Patient?: No
== END 2020-04-12 17:52 | disposition hospice, home (50) | DRG 640 ==
LOC: ER 13:04 → EH 17:10 → 5 20:40
PROVIDERS: ADMIT Internal Medicine; ATTEND Internal Medicine
DX: E87.1 Hypo-osmolality and hyponatremia (principal); K83.1 Obstruction of bile duct; G93.41 Metabolic encephalopathy; N32.1 Vesicointestinal fistula; C18.9 Malignant neoplasm of colon, unspecified; C78.7 Secondary malignant neoplasm of liver and intrahepatic bile duct; E27.8 Other specified disorders of adrenal gland; I95.89 Other hypotension; I48.91 Unspecified atrial fibrillation; Z51.5 Encounter for palliative care; R41.82 Altered mental status, unspecified; J44.9 Chronic obstructive pulmonary disease, unspecified; R91.8 Other nonspecific abnormal finding of lung field; F17.200 Nicotine dependence, unspecified, uncomplicated; T38.0X5A Adverse effect of glucocorticoids and synthetic analogues, initial encounter; E78.5 Hyperlipidemia, unspecified; I10 Essential (primary) hypertension; M19.90 Unspecified osteoarthritis, unspecified site; E87.6 Hypokalemia; Z71.6 Tobacco abuse counseling; Z72.89 Other problems related to lifestyle; Z82.49 Family history of ischemic heart disease and other diseases of the circulatory system
CPT/HCPCS: 36415; 70450; 71045; 74177; 80053; 81001; 82140; 82550; 82553; 82803; 83605; 83690; 83735; 84100; 84484; 85025; 85610; 85730; 87040; 87077; 87086; 87088; 87150; 87186; 93005; 93010; 96361; 96365; 99285; J2543; J7120